=== PATIENT | female | born 1945 | race Caucasian/White ===

== ENCOUNTER → 2017-08-30 | Outpatient (CLI) | payer MEDICARE | END | disposition home or self-care (01) | LOC: CPPFTMAIN 13:03 | PROVIDERS: ATTEND Family Medicine | DX: R05 Cough (principal) | CPT/HCPCS: 94060; 94726; 94729 ==

== ENCOUNTER → 2018-06-16 | Outpatient (CLI) | payer MEDICARE | END | disposition home or self-care (01) | LOC: LABPAT 12:32 | PROVIDERS: ATTEND Orthopaedic Surgery | DX: Z01.812 Encounter for preprocedural laboratory examination (principal) | CPT/HCPCS: 87070 ==

== ENCOUNTER 2018-07-17 05:41 | Inpatient (IN) | payer MEDICARE ==
[2018-07-10 09:26] VITALS: BMI 31.8
--- NOTE | 2018-07-16 21:54 | HP ---
HISTORY AND PHYSICAL SURGERY: 07/17/2018. Jose Francisco Geller a 72-year-old patient seen with symptomatic right knee osteoarthritis. Treatment options discussed. She elected to proceed with right total knee arthroplasty. Consent obtained. Medical clearance by Dr. Davis. PAST MEDICAL HISTORY: Hypertension, hyperlipidemia, asthma. PAST SURGICAL HISTORY: section, carpal tunnel release. DAILY MEDICATIONS: Simvastatin, Singulair, Advil. ALLERGIES: Neosporin. SOCIAL HISTORY: Patient denies current tobacco use. PHYSICAL EXAMINATION: Physical evaluation right knee: Range of motion is -3/4 to 115 degrees. Tenderness along the medial joint line. Crepitance medial and patellofemoral compartments with range of motion. Pain with patellofemoral compression. Ligaments stable. Hip rotation without pain. Distal neurovascular exam intact. RADIOGRAPHS: Right knee radiographs reveal severe osteoarthritic changes. IMPRESSION: 1. Right knee osteoarthritis. 2. Hypertension. 3. Hyperlipidemia. 4. Asthma. PLAN: Right total knee arthroplasty. MMODL / IJN: [id number] /
[~2018-07-17 05:41] MED LIST: ACETAMINOPHEN TAB 500 MG TAB PO ONE; DEXAMETHASONE SOD PHOSPHATE 10 MG/ML 1 ML VIAL IV ONE; LIDOCAINE 1% 20 ML VIAL (10MG/ML) FOR IV START INTRADERMA PRN; MELOXICAM 7.5 MG TAB PO ONE; MIDAZOLAM 2 MG/2 ML VIAL IV PRN; ONDANSETRON 4 MG/2 ML VIAL IVP ONE; TRANEXAMIC ACID 1,000 MG in SODIUM CHLORIDE 0.9% 50 ML IVPB ONE; ceFAZolin IN SWFI 2 GM/20 ML SYRINGE IVP ONE; fentaNYL (PF) 50 MCG/ML 2 ML AMP IV PRN
[2018-07-17] MEDS: LACTATED RINGERS 1,000 ML IV SCH ×5 (06:40→23:59)
[2018-07-17] MEDS ORDERED: PROPOFOL 10 MG/ML 20 ML VIAL IV ONE (07:04)
[2018-07-17] MEDS ORDERED: LACTATED RINGERS 1,000 ML IV ONE ×2 (07:04→08:43)
[2018-07-17] MEDS ORDERED: SODIUM CHLORIDE 0.9% 100 ML BAG ONE (07:04)
[2018-07-17] MEDS ORDERED: MIDAZOLAM 2 MG/2 ML VIAL ONE (07:04)
[2018-07-17] MEDS ORDERED: diphenhydrAMINE 50 MG/ML 1 ML VIAL ONE (07:04)
[2018-07-17] MEDS ORDERED: TRANEXAMIC ACID 1,000 MG/10 ML VIAL ONE (07:04)
[2018-07-17] MEDS: ROPIVACAINE 246.25 MG, EPINEPHrine 0.5 MG, KETOROLAC 30 MG, cloNIDine HCL/PF 80 MCG, WA... MISCELLANE ONE ×10 (07:36→10:45)
[2018-07-17] MEDS ORDERED: ceFAZolin 3,000 MG in SODIUM CHLORIDE 0.9% IRRIGATIO 3,000 ML IRRIGATION ONE (07:37)
--- NOTE | 2018-07-17 08:46 | P.ONQ ---
Anesthesiology Proc Note - PNB - Peripheral Nerve Block Performed Right Adductor Canal Infusion Time Out Performed: Yes (51) Procedure Start Time: 06:51 Procedure Stop Time: 06:58 Indication: Acute Post-Operative Pain, Dx/Pain Location (Right Knee Pain), Requested by physician Sedation Type: Sedate with meaningful contact maintained Preparation: Sterile Prep Position: Supine Catheter: Indwelling Needle Types: On-Q Needle Size: 100mm (4") Needle Gauge: 21 Technique: Ultrasound Injectate: 0.5% Ropivacaine (see comment for volume) (20 ml) Blood Aspirated: No Pain Paresthesia on Injection Noted: No Resistance on Injection: Normal Events: Uneventful and Well Tolerated
[2018-07-17] MEDS ORDERED: NALOXONE 0.4 MG/ML 1 ML VIAL IV PRN (08:59)
[2018-07-17] MEDS ORDERED: HYDROcodone/APAP 5-325MG 1 EACH TAB PO PRN (08:59)
[2018-07-17] MEDS ORDERED: HYDROmorphone 1 MG/ML 1 ML SYRINGE IVP PRN ×3 (08:59)
[2018-07-17] MEDS ORDERED: ONDANSETRON 4 MG/2 ML VIAL IVP PRN (08:59)
--- NOTE | 2018-07-17 08:59 | P.OP ---
Date of Procedure: 07/17/18 Preoperative Diagnosis: Right knee osteoarthritis Postoperative Diagnosis: Right knee osteoarthritis Procedure(s) Performed: Right total knee arthroplasty Implants: 1. Miroslava persona size 8 narrow right cemented cruciate retaining femur 2. Miroslava persona size E right cemented tibial baseplate 3. Miroslava persona 10 mm medial congruent polyethylene tibial insert 4. Miroslava persona 35 mm all polyethylene cemented patella Anesthesia: regional (Adductor canal catheter), local, spinal Surgeon: Adrian Scott Clerk Typist #1: Joselo Ly Estimated Blood Loss (ml): 50 Pathology: other (Bone) Condition: stable Disposition: PACU Indications for Procedure: 72-year-old patient seen with symptomatic right knee osteoarthritis. After having treatment options discussed, she elected to proceed with total knee arthroplasty. Operative Findings: See description of procedure Description of Procedure: Patient was taken to the operative suite after having an adductor canal catheter placed by the department of anesthesia for postoperative pain control. Patient underwent a spinal anesthetic by the department of anesthesia. Patient was given preoperative IV intake antibiotics and TXA. A well-padded tourniquet was placed about the right lower extremity. The lower extremity was then prepped and draped in the normal sterile orthopedic fashion. The extremity was elevated, a tourniquet was insufflated to 300. A standard anterior incision was made sharply through skin. Dissection was taken down through the subcutaneous soft tissues down to the extensor mechanism. A medial arthrotomy was performed, patella was everted and knee was flexed. There was advanced osteoarthritis noted. I introduced my distal intramedullary femoral drill. I then introduced the distal femoral cutting jig. Reji DORANTES secured the cutting jig with 2 pins. I held retractors in position while Reji DORANTES performed the distal femoral resection through the guide area we now removed her distal femoral cutting guide. We now placed our 4-in-1 femoral cutting block and positioned and it was secured with 2 pins by Reji DORANTES while I held the block in position. The distal femoral finishing was now completed. A proximal tibial cutting guide was positioned. I held the guide in the appropriate position with both hands well Reji DORANTES inserted stabilizing pins into the guide. Proximal tibial cut was made. We now placed a trial femoral component into position, along with an appropriate size tibial tray and insert. We now took the knee through range of motion and had full extension good flexion and good overall soft tissue balance noted. The patella was everted and stabilized with 2 towel clips held by Reji DORANTES while I performed a flush with patellar quad tendon utilizing a fresh sawblade. We templated the patella, appropriate drill holes were made. An appropriate trial patella was positioned, knee was taken through full range of motion with the patella tracking very nicely. The trial patella was removed. Drill holes were made through the femoral component. All trial components were removed after marking off the appropriate rotation of the tibia. Retractors were now positioned along the proximal tibia. An appropriate keel punch was made with the appropriate size tibial guide by myself on Reji DORANTES assisted by holding retractors. At this point appropriate size implants were chosen and opened. The joint was irrigated copiously with pulse lavage mechanical irrigation. The posterior capsule was infiltrated with local analgesic. The wound was irrigated with pulse lavage mechanical irrigation. We mixed antibiotic methylmethacrylate. We placed the knee into flexion. We placed multiple retractors assisted by Reji DORANTES to expose the proximal tibia. Once the methyl methacrylate was ready, the tibial component was cemented into place removing any excess methylmethacrylate form by both myself and Reji DORANTES. The femoral component was cemented into place removing the removing any excess methylmethacrylate performed by both myself and Reji DORANTES. We then inserted the appropriate size polyethylene tibial insert. We made sure that it was locked into position. We took the knee into full extension, and then back in a flexion making sure we had removed any excess methylmethacrylate. The patellar component was then cemented down and secured with clamp. Excess methylmethacrylate removed. We kept the knee in full extension, patellar clamp in position until methylmethacrylate had hardened. Once it had hardened the patellar clamp was removed. The knee was taken through full range of motion. The patella tracked nicely. There was good soft tissue balancing. The tourniquet was now released. Additional hemostasis was achieved via electrocautery. A second gram of TXA was given. The wound again was irrigated with pulse lavage mechanical irrigation. The superficial soft tissues were infiltrated local analgesic. The extensor mechanism was repaired with Vicryl. We checked the repair with range of motion and it was stable. The subcutaneous soft tissues were repaired with Vicryl in layers. The skin was approximated with pernio/Dermabond. Sterile dressings were applied followed by loose web roll and David bandage. The patient was transferred to a bed, and taken to recovery in stable and satisfactory condition. Reji DORANTES assisted with this complex procedure.
[2018-07-17] MEDS ORDERED: ENOXAPARIN 30 MG/0.3 ML SYRINGE SQ SCH (09:00)
[2018-07-17] MEDS ORDERED: ROPIVACAINE 1,100 MG, SODIUM CHLORIDE 0.9% 500 ML 330 ML MISCELLANE PRN ×2 (09:33)
--- NOTE | 2018-07-17 09:57 | XR ---
EXAMINATION TYPE: XR knee limited RT DATE OF EXAM: 07/17/2018 COMPARISON: NONE TECHNIQUE: Two views submitted HISTORY: Post op FINDINGS: There is a prosthetic knee in near anatomic alignment. There is soft tissue edema and emphysema. IMPRESSION: 1. Postoperative change. Appears in near-anatomic alignment
[2018-07-17] MEDS: HYDROmorphone 0.5 MG/0.5 ML SYRINGE IVP PRN ×2 (11:07→11:14)
[2018-07-17] MEDS ORDERED: diphenhydrAMINE 50 MG/ML 1 ML VIAL IVP ONE (11:08)
[2018-07-17] MEDS: HYDROcodone/APAP 5-325MG 1 EACH TAB PO PRN (12:14)
[2018-07-17] MEDS: ceFAZolin IN SWFI 2 GM/20 ML SYRINGE IVP SCH ×2 (18:20→23:55)
[2018-07-17] MEDS: ATORVASTATIN 20 MG TAB PO SCH (19:19)
[2018-07-17] MEDS: SENNOSIDES-DOCUSATE SODIUM 1 EACH TAB PO SCH (19:19)
[2018-07-17] MEDS: ENOXAPARIN 30 MG/0.3 ML SYRINGE SQ SCH (19:21)
[2018-07-17] MEDS: SYMBICORT 160-4.5 MCG INHALER INHALATION SCH (21:07)
[2018-07-17] MEDS: traMADol 50 MG TAB PO PRN (22:44)
[2018-07-18] MEDS: HYDROcodone/APAP 5-325MG 1 EACH TAB PO PRN ×4 (03:46→20:56)
[2018-07-18] MEDS ORDERED: NON-FORMULARY DRUG (Omeprazole 40 MG) PO SCH (07:30)
[2018-07-18 07:32] LABS: Basophils % (A) 0 %; Eosinophils % (A) 0 %; HCT 36.5 % (34.0-46.0); HGB 12.2 gm/dL (11.4-16.0); Lymphocytes # (A) 1.5 k/uL (1.0-4.8); Lymphocytes % (A) 11 %; MCH 28.4 pg (25.0-35.0); MCHC 33.5 g/dL (31.0-37.0); Mean Platelet Volume 8.7; Monocytes % (A) 7 %; Neutrophils # (A) 11.4 k/uL (1.3-7.7); Neutrophils % (A) 81 %; Platelet Count 176 k/uL (150-450); RDW 14.1 % (11.5-15.5)
[2018-07-18] MEDS: MULTIVITAMINS, THERA 1 EACH TAB PO SCH (08:56)
[2018-07-18] MEDS: CALCIUM CARB-VIT D 500MG-200UN 1 EACH TAB PO SCH (08:56)
[2018-07-18] MEDS: ENOXAPARIN 30 MG/0.3 ML SYRINGE SQ SCH ×2 (08:56→20:57)
[2018-07-18] MEDS: PANTOPRAZOLE 40 MG TABLET PO SCH (08:57)
[2018-07-18] MEDS: hydrOXYzine PAMOATE 25 MG CAP PO PRN ×2 (08:59→20:56)
[2018-07-18] MEDS ORDERED: LORATADINE 10 MG TAB PO SCH (09:00)
[2018-07-18] MEDS ORDERED: MONTELUKAST 10 MG TAB PO SCH (09:00)
--- NOTE | 2018-07-18 09:00 | CONS ---
CONSULTATION DATE OF CONSULTATION: 07/17/2018. REASON FOR CONSULTATION: Medical management requested by Dr. Scott. CONSULTATION: This is a very pleasant 72-year-old patient who follows with Dr. Marleny Davis. Chronic stable medical conditions include asthma, GERD, hyperlipidemia, varicose veins. Patient has undergone right total knee arthroplasty. Some pain is present. No nausea, vomiting. No chest pain or short of breath. Lying in bed. is present. REVIEW OF SYSTEMS: CONSTITUTIONAL: None. HEENT: None. RESPIRATORY: None. CARDIOVASCULAR: None. GENITOURINARY: None. GASTROINTESTINAL: Heartburn. MUSCULOSKELETAL: Arthritic pain in the joints. DERMATOLOGICAL: Some dermatitis changes in the fingers. HEMATOLOGICAL: None. LYMPHATICS: None. PSYCHIATRY: None. NEUROLOGICAL: None. PAST MEDICAL HISTORY: Of asthma, TIA, GERD, hyperlipidemia, osteoarthritis, postmenopausal, varicose veins, dermatitis in the fingers. PAST SURGICAL HISTORY: , joint replacement, bilateral cataract, perianal lesion removed, left total knee repair and repair of hammertoe on the right big toe, . PSYCH HISTORY: Anxiety. SOCIAL HISTORY: The patient smoked for about 15 years. Stopped in 1978, . FAMILY HISTORY: Family history of lung and liver cancer. HOME MEDICATIONS: Simvastatin 40 mg q.h.s., Prilosec 40 mg before breakfast, fish oil 1000 mg p.o. daily, Singulair 10 mg p.o. daily, fluticasone 1 spray each nostril daily, Zyrtec 10 mg p.o. daily, Calcium 600, vitamin D 1 tablet p.o. daily, Symbicort 160/4.5 two puffs b.i.d., biotin 5 mg p.o. daily, 137 mcg b.i.d. p.r.n., aspirin 81 mg p.o. daily. ALLERGIES: ADHESIVE, BACITRACIN, NEOMYCIN, POLYMYXIN B, DOXYCYCLINE. PHYSICAL EXAMINATION: Temperature 97.6 pulse 96, respiration 16, blood pressure 122/76, pulse ox 97% on room air. GENERAL APPEARANCE: Average built, BMI 31.9. Lying in bed, comfortable. EYES: Pupils equal, conjunctivae normal. HEENT: External appearance of nose and ears normal, oral can moist. NECK: JVD not raised. Mass not palpable. RESPIRATORY: Effort normal, lungs are clear. CARDIOVASCULAR: First and second sounds normal. No edema. ABDOMEN: Soft, nontender. Liver and spleen not palpable. LYMPHATIC: No lymph node palpable in neck or axillae. PSYCHIATRY: Alert and oriented x3. Mood and affect normal. NEUROLOGICAL: Pupils equal. Cranial nerves grossly intact. Power and sensation grossly intact. MUSCULOSKELETAL: Dressing of the right knee. Evidence of OA especially in the hands. INVESTIGATIONS: No current blood work. ASSESSMENT: 1. Right total knee arthroplasty. 2. Primary osteoarthritis. 3. Gastroesophageal reflux disease. 4. Hyperlipidemia. 5. Mild intermittent asthma, stable. 6. Obesity, body mass index 31.7. PLAN: Home medications are resumed. Pain control is in place, patient also getting lactated Ringer's. Patient is on Lovenox 30 mg subcu q.12 for DVT prophylaxis. Care was discussed with the patient's . Questions were answered. Thank you, Dr. Scott. GABBIE / RADHA: [id number] /
[2018-07-18] MEDS: SYMBICORT 160-4.5 MCG INHALER INHALATION SCH ×2 (09:59→20:39)
--- NOTE | 2018-07-18 13:30 | P.PN ---
Progress Note - Text Progress Note Date: 07/18/18 Patient seen lying in bed comfortably. Patient reports some nausea. Patient reports some pain in the right knee. Incision stable. Distal neurovascular exam intact. Negative Kevin Saunders. Impression: Status post right total knee arthroplasty Plan: Pain control. Physical therapy Anticipate discharge tomorrow
[2018-07-18] MEDS ORDERED: HYDROmorphone 2 MG TAB PO PRN ×3 (13:46→13:47)
[2018-07-18] MEDS: traMADol 50 MG TAB PO PRN (16:21)
[2018-07-18] MEDS: LACTATED RINGERS 1,000 ML IV SCH ×2 (19:56→22:22)
[2018-07-18] MEDS: ATORVASTATIN 20 MG TAB PO SCH (20:55)
[2018-07-18] MEDS: SENNOSIDES-DOCUSATE SODIUM 1 EACH TAB PO SCH (20:55)
--- NOTE | 2018-07-18 23:01 | PN ---
PROGRESS NOTE DATE OF SERVICE: 07/18/2018. PRESENTING COMPLAINT: Right knee surgery. INTERVAL HISTORY: Patient is status post right knee surgery, feeling better. No chest pain, shortness of breath. No nausea or vomiting. Did tolerate a diet. Did work with therapy. REVIEW OF SYSTEMS: Done for constitutional, cardiovascular, GI, pulmonary, musculoskeletal; relevant findings as above. CURRENT MEDICATIONS: Reviewed. EXAMINATION: Temperature 97.6, pulse 86, respirations 16, blood pressure 123/75, pulse ox 95 percent. GENERAL APPEARANCE: Sitting up comfortable. EYES: Pupils equal. Conjunctivae normal. HEENT: External appearance of nose and ears normal. Oral cavity normal. NECK: JVD not raised. Mass not palpable. Respiratory effort normal. LUNGS: Clear. CARDIOVASCULAR: 1st and 2nd heart sounds normal. No edema. ABDOMEN: Soft, nontender. Liver and spleen not palpable. PSYCHIATRY: Alert and oriented x3. Mood and affect normal. INVESTIGATIONS: White count 14, hemoglobin 12.2. ASSESSMENT: 1. Right total knee arthroplasty. 2. Primary osteoarthritis. 3. Gastroesophageal reflux disease. 4. Hyperlipidemia. 5. Mild intermittent asthma stable. 6. Obesity; BMI 31.7. 7. Leukocytosis, likely reactive. No clinical evidence of infection. PLAN: Patient is overall doing much better. Had some nausea earlier. Continue light diet. Care was discussed with the patient. MMODL / IJN: [id number] /
[2018-07-19] MEDS: HYDROcodone/APAP 5-325MG 1 EACH TAB PO PRN ×2 (02:49→09:22)
[2018-07-19] MEDS: traMADol 50 MG TAB PO PRN ×2 (06:02→13:38)
[2018-07-19 08:05] VITALS: BP 146/79; PULSE 79; RESP 16; TEMP 98
[2018-07-19] MEDS: SYMBICORT 160-4.5 MCG INHALER INHALATION SCH (08:29)
[2018-07-19] MEDS: PANTOPRAZOLE 40 MG TABLET PO SCH (08:38)
[2018-07-19] MEDS: ENOXAPARIN 30 MG/0.3 ML SYRINGE SQ SCH (08:40)
[2018-07-19] MEDS ORDERED: MONTELUKAST 10 MG TAB PO SCH (09:00)
[2018-07-19] MEDS: hydrOXYzine PAMOATE 25 MG CAP PO PRN (09:21)
--- NOTE | 2018-07-19 10:24 | P.PN ---
Subjective Progress Note Date: 07/19/18 Principal diagnosis: Status post right total knee arthroplasty Patient seen today resting in her hospital bed, she appears comfortable. She's ambulated well at this time. She did develop some dizziness yesterday at the end of her walk. She denies any chest pain or shortness of breath time. Objective - Vital Signs Vital signs: Vital Signs Temp 98 F 07/19/18 08:05 Pulse 79 07/19/18 08:05 Resp 16 07/19/18 08:05 BP 146/79 07/19/18 08:05 Pulse Ox 95 07/19/18 08:05 Intake & Output 07/18/18 07/19/18 07/19/18 18:59 06:59 18:59 Intake Total 250 1800 540 Balance 250 1800 540 Weight 81.647 kg Intake: Oral 250 1800 540 Other: Voiding Method Toilet # Voids 1 2 # Bowel Movements 1 # Emeses 0 - Exam Right lower extremity: Incision is clean, dry, and intact. The prineo tape is in good condition. There is minimal soft tissue swelling and ecchymosis surrounding the medial and lateral aspects of the incision. Calf is soft, no tenderness with palpation. Plantar flexion, dorsiflexion, EHL, FHL are intact. Sensory exam to light touch throughout the extremity is intact, dorsal pedis pulses 2+. - Labs CBC & Chem 7: 07/18/18 06:06 Assessment and Plan Plan: Assessment: Postop day #2 status post right total knee arthroplasty Plan: Pain control, continue current medication GI and DVT prophylaxis, continue Lovenox during hospital stay Wound care instructions were discussed Encourage incentive spirometer Ice and elevate, utilize CPM Medical recommendations Discharge planning: Possible discharged home today, we'll monitor Time with Patient: Less than 30
[2018-07-19] MEDS: LACTATED RINGERS 1,000 ML IV SCH (11:34)
[2018-07-19] MEDS: CALCIUM CARB-VIT D 500MG-200UN 1 EACH TAB PO SCH (11:36)
[2018-07-19] MEDS: MULTIVITAMINS, THERA 1 EACH TAB PO SCH (11:36)
--- NOTE | 2018-07-19 12:08 | P.PN ---
Progress Note - Text Anesthesia POD 2. Patient is status post. Right TKR under spinal anesthesia anesthesia with a right adductor canal catheter placed for postoperative pain relief. With ropivacaine 0.2% running at 12 cc's per hour, the patient's VAS is (3, 6). Catheter site is clean dry and intact.
--- NOTE | 2018-07-19 12:42 | P.DS ---
Providers Date of admission: 07/17/18 05:41 Expected date of discharge: 07/19/18 Attending physician: Adrian Scott Consults: 07/17/18 08:59 Consult Physician Routine Consulting Provider: Marleny Davis Consult Reason/Comments: Medical management Do you want consulting provider notified?: Yes Primary care physician: Marleny Davis Hospital Course: Date of admission: 07/17/2018 Date of discharge: 07/19/2018 Admission diagnosis: Status post right total knee arthroplasty Discharge diagnosis: Same Attending physician: Dr. Scott Surgical procedures: Right total knee arthroplasty Brief history: Patient is a 72-year-old female with a history of progressive primary right knee osteoarthritis. At this point patient has failed conservative treatment measures and has opted to proceed with a elective right total knee arthroplasty. Hospital course: Details of patient's surgery can be found in operative report. Patient tolerated the procedure well and was subsequently transported to orthopedic floor. Patient's orthopeidc and medical care was provided daily. Patient had daily laboratory tests performed for evaluation of overall blood counts. Patient had daily physical therapy to include strengthening range of motion as well as education with walker ambulation. Patient had daily CPM usage as part of their physical therapy program. Patient was treated with Lovenox for their postoperative DVT prophylaxis during their inpatient stay. Patient was noted to have a relatively uneventful postoperative course. Patient reported satisfactory pain control with oral pain medications by postoperative day 0. Patient showed satisfactory progress with physical therapy. Patient moved steadily through the program and had no difficulty meeting the goals by postoperative day 2. Given patient's otherwise satisfactory course and having met physical therapy goals, plan is to discharge patient home on postoperative day 2. Discharge condition/disposition: Patient will be discharged home in stable condition. Discharge medications: Instructions are given on resumption of patient's normal daily medications per primary care recommendation, in addition patient will be prescribed [place] 5 mg/325 mg, tramadol 50 mg, aspirin 81 mg. Discharge instructions: 1. Wound care and infection precautions, keep incision dry and covered while showering, no lotions, creams, moisturizers. No soaking, tubs, pools, hottubs. Do not scrub over the incision. 2. Weight-bear as tolerated with walker / cane until follow-up. 3. Ice and elevate when necessary. Do not exceed 20 minutes per hour with ice pack. 4. Utilize compression sleeve until seen at first follow up appointment. 5. Visiting nursing care. 6. Home physical therapy including home CPM. 7. Pain meds and anticoagulants per prescription. 8. Pain medication has potential to cause constipation. Increase oral fluid and fiber intake. Contact primary care provider if you have not had a bowel movement within 48 hours after discharge 9. No anti-inflammatory medication until discussed at first post operative visit, this including Motrin, Aleve, Mobic, Diclofenac. 10. Follow up in office at 2 weeks postop with Reji Ly PA-C 11. Follow up with your primary care doctor 7-10 days after discharge. 12. Contact [facility] with any questions, . Procedures: Right total knee arthroplasty Patient Condition at Discharge: Good Plan - Discharge Summary Discharge Rx Participant: Yes New Discharge Prescriptions: New Hydrocodone/Acetaminophen [[place] 5-325] 1 - 2 each PO Q6HR PRN #40 tab PRN Reason: Pain traMADol HCl [Ultram] 50 mg PO Q6H PRN #28 tab PRN Reason: Pain No Action Budesonide/Formoterol Fumarate [Symbicort 160-4.5 Mcg Inhaler] 2 puff INHALATION RT-BID Cetirizine HCl [Zyrtec] 10 mg PO DAILY Simvastatin 40 mg PO HS Fluticasone Propionate 1 spray EA NOSTRIL DAILY Montelukast [Singulair] 10 mg PO DAILY Azelastine HCl [Astepro] 137 mcg NASAL BID PRN PRN Reason: allergies Novice-3 Fatty Acids/Fish Oil [Fish Oil 1,000 mg Softgel] 1 each PO DAILY Calcium Carbonate/Vitamin D3 [Calcium 600 + Vit D Tablet] 1 each PO DAILY Biotin 5 mg PO DAILY Omeprazole [PriLOSEC] 40 mg PO -[facility] Discharge Medication List Budesonide/Formoterol Fumarate [Symbicort 160-4.5 Mcg Inhaler] 2 puff INHALATION RT-BID 07/23/14 [History] Cetirizine HCl [Zyrtec] 10 mg PO DAILY 07/23/14 [History] Fluticasone Propionate 1 spray EA NOSTRIL DAILY 07/23/14 [History] Simvastatin 40 mg PO HS 07/23/14 [History] Montelukast [Singulair] 10 mg PO DAILY 07/29/14 [History] Azelastine HCl [Astepro] 137 mcg NASAL BID PRN 02/26/16 [History] Biotin 5 mg PO DAILY 02/26/16 [History] Calcium Carbonate/Vitamin D3 [Calcium 600 + Vit D Tablet] 1 each PO DAILY [History] Novice-3 Fatty Acids/Fish Oil [Fish Oil 1,000 mg Softgel] 1 each PO DAILY [History] Omeprazole [PriLOSEC] 40 mg PO AC-BRKFST 07/17/18 [History] Hydrocodone/Acetaminophen [[place] 5-325] 1 - 2 each PO Q6HR PRN #40 tab 07/19/18 [Rx] traMADol HCl [Ultram] 50 mg PO Q6H PRN #28 tab 07/19/18 [Rx] Follow up Appointment(s)/Referral(s): Marleny Davis DO [Primary Care Provider] - 07/27/18 10:00 am Joselo Ly PAC [PHYSICIAN MANAGER WHOLESALE] - 08/04/18 1:30 pm [facility] Visiting Nurse, [NON-STAFF] - Patient Instructions/Handouts: Knee Replacement (DC) Activity/Diet/Wound Care/Special Instructions: Orthopedic Discharge Instructions: 1. Wound care and infection precautions, keep incision dry and covered while showering, no lotions, creams, moisturizers. No soaking, pools, hot tubs. Do not scrub over incision. 2. Weight-bear as tolerated with walker / cane until follow-up. 3. Ice and elevate when necessary. Do not exceed 20 minutes per hour with ice pack. 4. Utilize compression sleeve until seen at first follow up appointment. 5. Pain meds and anticoagulants per prescription. 6. Pain medication has potential to cause constipation. Increase oral fluid and fiber intake. Contact primary care provider if you have not had a bowel movement within 48 hours after discharge. 7. No anti-inflammatory medication until discussed at first post operative visit, this including Motrin, Aleve, Mobic, Diclofenac. 8. Follow up in office at 2 weeks postop with Reji Ly PA-C 9. Follow up with your primary care doctor 7-10 days after discharge. 10. Contact [facility] with any questions, [phone]. 11. [facility] [phone] - Please call once home to arrange delivery of CPM Discharge Disposition: HOME WITH HOME HEALTH SERVICES
[2018-07-19] MEDS ORDERED: LORATADINE 10 MG TAB PO SCH (21:00)
--- NOTE | 2018-07-20 06:39 | PN ---
PROGRESS NOTE DATE OF SERVICE: 07/19/2018 PRESENTING COMPLAINT: Right knee surgery. INTERVAL HISTORY: Patient is status post right knee surgery feeling better. Continues to improve. No new symptoms. Did follow up with therapy. Did tolerate a diet. No chest pain or shortness of breath. REVIEW OF SYSTEMS: Done for constitutional, cardiovascular, GI, pulmonary, musculoskeletal; relevant findings as above. CURRENT MEDICATIONS: Current medications are reviewed. PHYSICAL EXAMINATION: On examination, temperature 98, pulse 79, respiration 16, blood pressure 146/79, pulse ox 95% on room air. GENERAL APPEARANCE: Sitting up, comfortable. EYES: Pupil equal. Conjunctivae normal. HENT: External appearance of nose and ears normal. Oral cavity normal. NECK: JVD not raised. Mass not palpable. RESPIRATORY: Effort normal. Lungs are clear. CARDIOVASCULAR: First and second sounds normal. No edema. ABDOMEN: Soft, nontender. Liver and spleen not palpable. PSYCHIATRY: Alert and oriented x3. Mood and affect normal. INVESTIGATIONS: No lab work from today. ASSESSMENT: 1. Right total knee arthroplasty. 2. Primary osteoarthritis. 3. Gastroesophageal reflux disease. 4. Hyperlipidemia. 5. Mild intermittent asthma, stable. 6. Obesity; body mass index 31.7. 7. Leukocytosis likely reactive. No clinical evidence of infection. PLAN: Patient is doing well. If discharged, should follow up with her family doctor. MMODL / IJN: [id number] /
== END 2018-07-19 13:57 | disposition home health service (06) | DRG 470 ==
LOC: 2ORMAIN 05:41 → 4SSUR 11:39
PROVIDERS: ADMIT Orthopaedic Surgery; ATTEND Orthopaedic Surgery
PROC: 0SRC0J9 Replacement of Right Knee Joint with Synthetic Substitute, Cemented, Open Approach (ICD-10-PCS; principal; 2018-07-17 07:00)
DX: M17.11 Unilateral primary osteoarthritis, right knee (principal); D72.829 Elevated white blood cell count, unspecified; E66.9 Obesity, unspecified; E78.5 Hyperlipidemia, unspecified; I10 Essential (primary) hypertension; I83.90 Asymptomatic varicose veins of unspecified lower extremity; J45.20 Mild intermittent asthma, uncomplicated; K21.9 Gastro-esophageal reflux disease without esophagitis; Z68.31 Body mass index [BMI] 31.0-31.9, adult; Z79.82 Long term (current) use of aspirin; Z80.0 Family history of malignant neoplasm of digestive organs; Z86.73 Personal history of transient ischemic attack (TIA), and cerebral infarction without residual deficits; Z87.891 Personal history of nicotine dependence; L30.9 Dermatitis, unspecified; Z96.652 Presence of left artificial knee joint; Z98.42 Cataract extraction status, left eye; Z98.41 Cataract extraction status, right eye; F41.9 Anxiety disorder, unspecified; Z79.51 Long term (current) use of inhaled steroids; Z79.899 Other long term (current) drug therapy; Z80.1 Family history of malignant neoplasm of trachea, bronchus and lung; Z88.1 Allergy status to other antibiotic agents
CPT/HCPCS: 85025; 88300; 94640

== ENCOUNTER → 2018-10-04 | Outpatient (CLI) | payer MEDICARE ==
[2018-10-04 11:09] VITALS: BP 122/83; PULSE 80; RESP 18; TEMP 97.5; BMI 30.9
--- NOTE | 2018-10-04 11:43 | P.HPOB ---
History of Present Illness H&P Date: 10/04/18 Chief Complaint: The patient is here for her routine gynecologic exam and mammogram. This is a 73-year-old with an LMP of 1997. The patient is without gynecologic complaints and denies any postmenopausal bleeding. Review of Systems She has lost about 9 pounds over the last year. She denies respiratory, cardiac and G.I. problems. She denies maltreatment or problems with falling. : she denies any significant problems with urinary leakage. Past Medical History Past Medical History: Asthma, CVA/TIA (TIA in 2003), GERD/Reflux, Hyperlipidemia , Osteoarthritis (OA), Skin Disorder Additional Past Medical History / Comment(s): POST MENOPAUSAL > 2 YRS, PALPITATIONS,VARICOSE VEINS, UTI'S,INTERMITTENT DERMATITIS KATHERINE FINGERS. Seasonal allergies. 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 History of Any Multi-Drug Resistant Organisms: None Reported Past Surgical History: Section (x1), Joint Replacement (Left knee replacement), Orthopedic Surgery (Carpal tunnel surgery) Additional Past Surgical History / Comment(s): LT CATARACT, PERIANAL LESION REMOVED, TOTAL LEFT KNEE, repair of hammertoe the right foot. Colonoscopy 2010( 2nd) Past Anesthesia/Blood Transfusion Reactions: No Reported Reaction Additional Past Anesthesia/Blood Transfusion Reaction / Comment(s): STATED "NOT SURE IF EVER HAS HAD GENERAL ANESTHESIA" Past Psychological History: Anxiety Smoking Status: Former smoker (Quit 1978) Past Alcohol Use History: Occasional (2 per week) Additional Past Alcohol Use History / Comment(s): STARTED SMOKING IN 1963 STOPPED IN 1978 Past Drug Use History: None Reported Additional History: She has been since 1970 and is retired. She typically goes to [place] for 2 months every winter. - Past Family History Father Family Medical History: Cancer Additional Family Medical History / Comment(s): LUNG AND LIVER CA. Paternal aunt had breast cancer Mother Family Medical History: Dementia Brother(s) Family Medical History: No Reported History Son(s) Family Medical History: No Reported History Medications and Allergies Home Medications Medication Instructions Recorded Confirmed Type Budesonide/Formoterol Fumarate 2 puff INHALATION RT-BID 07/23/14 10/04/18 History [Symbicort 160-4.5 Mcg Inhaler] Cetirizine HCl [Zyrtec] 10 mg PO DAILY 07/23/14 10/04/18 History Fluticasone Propionate 1 spray EA NOSTRIL DAILY 07/23/14 10/04/18 History Simvastatin 40 mg PO HS 07/23/14 10/04/18 History Montelukast [Singulair] 10 mg PO DAILY 07/29/14 10/04/18 History Biotin 5 mg PO DAILY 02/26/16 10/04/18 History Calcium Carbonate/Vitamin D3 1 each PO DAILY 02/26/16 10/04/18 History [Calcium 600 + Vit D Tablet] [place]-3 Fatty Acids/Fish Oil [Fish 1 each PO DAILY 02/26/16 10/04/18 History Oil 1,000 mg Softgel] Omeprazole [PriLOSEC] 40 mg PO AC-BRKFST 07/17/18 10/04/18 History Allergies Allergy/AdvReac Type Severity Reaction Status Date / Time adhesive Allergy SKIN Verified 10/04/18 11:03 REDNESS bacitracin Allergy SKIN Verified 10/04/18 11:03 [From Neosporin REDNESS ([id number])] bacitracin zinc Allergy SKIN Verified 10/04/18 11:03 [From Neosporin REDNESS ([id number])] neomycin sulfate Allergy SKIN Verified 10/04/18 11:03 [From Neosporin REDNESS ([id number])] polymyxin B Allergy SKIN Verified 10/04/18 11:03 [From Neosporin REDNESS ([id number])] doxycycline AdvReac Nausea Verified 10/04/18 11:03 Exam Vital Signs Temp Pulse Resp BP Pulse Ox 10/04/18 10:57 97.5 F L 80 18 122/83 97 Intake and Output 10/03/18 10/04/18 10/04/18 22:59 06:59 14:59 Other: Weight 79.379 kg Height 5'3", weight 175 pounds, BMI 31.0. This is a well-developed well-nourished white female who is alert and oriented times 3 in no acute distress. HEENT: Within normal limits. NECK: Supple without mass or thyromegaly. CHEST AND LUNGS: Clear to auscultation. HEART: Regular rate and rhythm. BREASTS: Are without mass or discharge. AXILLARY EXAM: Negative for adenopathy. BACK: Negative for CVA tenderness. ABDOMEN: Soft, nontender, without palpable masses. PELVIC EXAM: Normal external genitalia with moderate atrophy. Cervix and vagina appear normal with mild to moderate atrophy. There is no unusual discharge. There is no evidence of prolapse. The uterus is midposition, nongravid size and nontender. There are no palpable adnexal masses or tenderness. RECTAL EXAM: recto vaginal exam is negative for mass or tenderness and is negative for occult blood. EXTREMITIES: Nontender. IMPRESSION: 1. 73-year-old menopausal female with normal gynecological exam. 2. History of osteopenia. PLAN: 1. Pap smear was deferred since she had a normal one less than 2 years ago. We have also discussed the possibility of discontinuing Pap smears since she has no history of cervical neoplasia and has been adequately screened and is over the age of 65. She feels strongly that she would like to continue yearly pelvic exams and regular Pap smears. Pap smears will be done every 2 to 3 years per the patient's request. 2. Self breast awareness was discussed with the patient. 3. Screening mammogram will be done today. 4. Osteoporosis prevention was discussed. I have stressed the importance of adequate calcium, vitamin D and regular exercise. Recommended amounts of calcium and vitamin D were also discussed. I have recommended bone density screening. The order slip was given to the patient for this. She states she will probably do this when she returns from [place]. 5. She did receive a flu shot this fall. 6. She will return in one year.
--- NOTE | 2018-10-08 14:29 | MM ---
Reason for exam: screening (asymptomatic). Last mammogram was performed 1 year and 1 month ago. History: Patient is postmenopausal. Family history of breast cancer in paternal aunt at age 54. Took hormonal contraceptives for 6 years beginning at age 19. Took estrogen for 2 years 6 months beginning at age 49. MG 3D Screening Mammo W/Cad Bilateral CC and MLO view(s) were taken. Prior study comparison: August 30, 2017, bilateral MG 3d screening mammo w/cad. August 25, 2016, bilateral MG 3d screening mammo w/cad. The breast tissue is heterogeneously dense. This may lower the sensitivity of mammography. No significant changes when compared with prior studies. ASSESSMENT: Negative, BI-RAD 1 RECOMMENDATION: Routine screening mammogram of both breasts in 1 year.
== END ==
LOC: WWCWWP 10:34
PROVIDERS: ATTEND Obstetrics & Gynecology
DX: Z12.31 Encounter for screening mammogram for malignant neoplasm of breast (principal)
CPT/HCPCS: 77063; 77067

== ENCOUNTER → 2019-07-11 | Outpatient (CLI) | payer MEDICARE ==
--- NOTE | 2019-07-11 11:53 | CT ---
EXAMINATION TYPE: CT sinus wo con DATE OF EXAM: 07/11/2019 COMPARISON: NONE HISTORY: chronic cough and sinus issues with facial pain for years per patient. Allergic per order. CT DLP: 609.4 mGycm. Automated Exposure Control for Dose Reduction was Utilized. TECHNIQUE: CT scan of the sinuses is performed without contrast, axial images are obtained, coronal r eformatted images are also reviewed. FINDINGS: Mild mucosal thickening involving anterior ethmoid sinuses bilaterally. No suspicious opaci fication or air-fluid levels otherwise seen in the visualized sinuses. The ostiomeatal complex is pa tent bilaterally on the coronal images seen best coronal image 19. Visualized portion of mastoid air cells show no abnormal opacification. The globes are intact bilate rally. Visualized portion of brain parenchyma shows mild diffuse cerebral atrophy and chronic small vessel ischemic changes. IMPRESSION: Mild anterior chronic ethmoid sinus disease. No acute sinusitis.
== END | disposition home or self-care (01) ==
LOC: RADCTMAIN 11:12
PROVIDERS: ATTEND Internal Medicine Critical Care Medicine
DX: J32.2 Chronic ethmoidal sinusitis (principal); J30.2 Other seasonal allergic rhinitis
CPT/HCPCS: 70486

== ENCOUNTER → 2019-07-25 | Outpatient (CLI) | payer MEDICARE ==
--- NOTE | 2019-07-25 10:27 | BD ---
EXAMINATION TYPE: Axial Bone Density DATE OF EXAM: 07/25/2019 COMPARISON: 2016 CLINICAL HISTORY: Z 78.0 Height: 62.5 Weight: 180 FRAX RISK QUESTIONS: Alcohol (3 or more units per day): no Family History (Parent hip fracture): yes, mother Glucocorticoids (More than 3mos): no (Ex: prednisone, prednisolone, methylprednisolone, dexamethasone, and hydrocortisone). History of Fracture in Adulthood: no Secondary Osteoporosis: 1. Type 1 Diabetes: no 2. Hyperthyroidism: no 3. Menopause before 45: no 4. Malnutrition: no 5. Chronic liver disease: no Rheumatoid Arthritis: no Current Tobacco Use: no RISK FACTORS HISTORY OF: Spine Fracture: yes, T-1 When: age 31 Family History of Osteoporosis: unsure Active: yes Diet low in dairy products/other sources of calcium: no Postmenopausal woman: yes Take estrogen and/or progesterone medications: not now How long: age [age] Lost more than 2 inches in height since high school: no Frequent falls: no Poor Health: no Hyperparathyroidism: no Adrenal Insufficiency: no MEDICATIONS: Prednisone or other steroids: no Thyroid Medications: no Osteoporosis Medications: no Additional Medications: calcium & vitamin D, Simvastatin Additional History: bilateral knee replacements, fx forearm age 5 (in 2016 patient reported history of Lumbar spine fx....since then patient has learned that fracture was actually in Thoracic spine) EXAM MEASUREMENTS: Bone mineral densitometry was performed using the [employer] System. Bone mineral density as measured about the Lumbar spine is: ----- L1-L4(G/cm2): 1.205 T Score Values are as follows: ----- L2: -0.9 ----- L3: 0.0 ----- L4: 2.7 ----- L1-L4: 0.2 Bone mineral density not previously done on lumbar spine Bone mineral density about the R hip (g/cm2): 0.725 Bone mineral density about the L hip (g/cm2): 0.692 T Score values are as follows: -----R Neck: -2.3 -----L Neck: -2.5 -----R Total: -2.2 -----L Total: -1.8 Bone mineral density has: Decreased -1.6% since study of: 09/24/2016 IMPRESSION: Osteopenia (T Score between -2.5 and -1). Values approach osteoporosis in regards to the left femoral neck. There is slightly increased risk of fracture and the patient may be considered for treatment. Re-Screen 2-5 years. NOTE: T-SCORE=SD OF THE YOUNG ADULT MEAN.
--- NOTE | 2019-07-25 12:35 | P.PN ---
Progress Note - Text Progress Note Date: 07/25/19 OUTPATIENT FOLLOW-UP NOTE TEST(S)/RESULTS: Bone density test done today shows stable osteopenia METHOD OF NOTIFICATION: The patient was notified by phone. PATIENT COMMENTS: The patient is declining medications for weaker bones at this time. DIAGNOSIS: Stable osteopenia bordering osteoporosis. DISCUSSION: We have discussed the option of medications for weaker bones and she is declining medication at this time. I have stressed the importance of adequate calcium, vitamin D, and regular exercise. Tips about avoiding falling and using stairs were discussed with the patient. PLAN: He bone density test in 2-3 years. She will return in approximately one year for her well woman exam.
== END | disposition home or self-care (01) ==
LOC: RADBDWWP 09:07
PROVIDERS: ATTEND Obstetrics & Gynecology
DX: M81.0 Age-related osteoporosis without current pathological fracture (principal); M85.80 Other specified disorders of bone density and structure, unspecified site
CPT/HCPCS: 77080

== ENCOUNTER → 2019-08-07 | Outpatient (CLI) | payer MEDICARE ==
[2019-08-07 16:08] LABS: African American GFR (CKD) >90 (>60 ml/min/1.73 sqM); Blood Urea Nitrogen 15 mg/dL (7-17)
--- NOTE | 2019-08-08 12:40 | CT ---
EXAMINATION TYPE: CT chest w con DATE OF EXAM: 08/07/2019 COMPARISON: NONE HISTORY: Cough and SOB CT DLP: 353.4 mGycm. Automated Exposure Control for Dose Reduction was Utilized. TECHNIQUE: CT scan of the thorax is performed following with IV Contrast, patient injected with 100 mL of Isovue 300. FINDINGS: LUNGS: 4 x 5 mm subsolid nodule along the subpleural medial left lower lobe on series 4 image 38. The lungs are grossly clear, there is no concerning parenchymal mass or nodule identified. There is no pleural effusion or pneumothorax seen. No interlobular septal thickening. The tracheobronchial tree is patent. No peribronchial cuffing is seen. No emphysematous change. MEDIASTINUM: There are no greater than 1 cm hilar or mediastinal lymph nodes. No pericardial effusi on is seen. Moderate coronary calcifications of the left anterior descending coronary artery OTHER: Partial visualization of the liver demonstrates diffuse hypoattenuation (limiting evaluation f or hepatic masses). This most commonly relates to hepatic steatosis. Few colonic diverticula are also seen without pericolonic fat stranding. There is fatty replacement of the pancreas. Compression defo rmities are seen of T12 and L2 that are age indeterminant. Mild multilevel degenerative changes of th e spine. IMPRESSION: 1. No CT finding to correspond to the patient's cough. No evidence of interstitial lung disease, no f ocal consolidation, no peribronchial cuffing, and no emphysema. 2. Incidentally noted subsolid 5 mm left basilar pulmonary nodule. CT thorax is recommended in 12 mon ths to establish stability. 3. Partially visualized hepatic steatosis, colonic diverticulosis, an age-indeterminate compression d eformities of T12 and L2. Correlate with point tenderness.
== END | disposition home or self-care (01) ==
LOC: RADCTMAIN 15:33
PROVIDERS: ATTEND Internal Medicine Critical Care Medicine
DX: R05 Cough (principal); Z88.1 Allergy status to other antibiotic agents
CPT/HCPCS: 82565; 84520; 71260; 36415; Q9967

== ENCOUNTER → 2020-03-11 | Outpatient (CLI) | payer MEDICARE ==
[2020-03-11 11:31] VITALS: BP 155/85; PULSE 80; RESP 18; TEMP 98.2
--- NOTE | 2020-03-11 12:08 | P.HPOB ---
History of Present Illness H&P Date: 03/11/20 Chief Complaint: The patient is here for her routine gynecologic exam and ma mmogram. This is a 74-year-old with an LMP of 1997. The patient is without gynecologic complaints and denies any postmenopausal bleeding. Review of Systems She has gained about 9 pounds over the last 1-1/2 years.. She denies respiratory, cardiac and G.I. problems. She denies maltreatment or problems with falling. : she denies any significant problems with urinary leakage, but can lose a small amount of urine if she coughs very hard. Past Medical History Past Medical History: Asthma, CVA/TIA, GERD/Reflux, Hyperlipidemia, Osteoarthritis (OA), Skin Disorder Additional Past Medical History / Comment(s): PALPITATIONS,VARICOSE VEINS, UTI'S,INTERMITTENT DERMATITIS KATHERINE FINGERS. Seasonal allergies. 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 History of Any Multi-Drug Resistant Organisms: None Reported Past Surgical History: Section, Joint Replacement, Orthopedic Surgery Additional Past Surgical History / Comment(s): LT CATARACT, PERIANAL LESION REMOVED, TOTAL LEFT KNEE, repair of hammertoe the right foot. Oral surgery. Colonoscopy 2010(2nd). Past Anesthesia/Blood Transfusion Reactions: No Reported Reaction Additional Past Anesthesia/Blood Transfusion Reaction / Comment(s): STATED "NOT SURE IF EVER HAS HAD GENERAL ANESTHESIA" Past Psychological History: Anxiety Smoking Status: Former smoker Past Alcohol Use History: Occasional (2-3 per week) Additional Past Alcohol Use History / Comment(s): STARTED SMOKING IN 1963 STOPPED IN 1978 Past Drug Use History: None Reported Additional History: She has been since 1970 and is retired. She typically goes to [place] for 2 months every winter. - Past Family History Father Family Medical History: Cancer Additional Family Medical History / Comment(s): LUNG AND LIVER CA. Paternal aunt had breast cancer Mother Family Medical History: Dementia Brother(s) Family Medical History: No Reported History Son(s) Family Medical History: No Reported History Medications and Allergies Home Medications Medication Instructions Recorded Confirmed Type Cetirizine HCl [Zyrtec] 10 mg PO DAILY 07/23/14 03/11/20 History Fluticasone Propionate 1 spray EA NOSTRIL DAILY 07/23/14 03/11/20 History Simvastatin 40 mg PO HS 07/23/14 03/11/20 History Montelukast [Singulair] 10 mg PO DAILY 07/29/14 03/11/20 History Biotin 5 mg PO DAILY 02/26/16 03/11/20 History Calcium Carbonate/Vitamin D3 1 each PO DAILY 02/26/16 03/11/20 History [Calcium 600 + Vit D Tablet] [place]-3 Fatty Acids/Fish Oil [Fish 1 each PO DAILY 02/26/16 03/11/20 History Oil 1,000 mg Softgel] Omeprazole [PriLOSEC] 40 mg PO AC-BRKFST 07/17/18 03/11/20 History Aspirin 81 mg PO DAILY 03/11/20 03/11/20 History Inulin/Chromium Picolinate [Fiber 1 each PO DAILY 03/11/20 03/11/20 History Gummies Chew] Allergies Allergy/AdvReac Type Severity Reaction Status Date / Time adhesive Allergy SKIN Verified 03/11/20 11:22 REDNESS bacitracin Allergy SKIN Verified 03/11/20 11:22 [From Neosporin REDNESS ([id number])] bacitracin zinc Allergy SKIN Verified 03/11/20 11:22 [From Neosporin REDNESS ([id number])] neomycin sulfate Allergy SKIN Verified 03/11/20 11:22 [From Neosporin REDNESS ([id number])] polymyxin B Allergy SKIN Verified 03/11/20 11:22 [From Neosporin REDNESS ([id number])] doxycycline AdvReac Nausea Verified 03/11/20 11:22 Exam Vital Signs Temp Pulse Resp BP Pulse Ox 03/11/20 11:26 98.2 F 80 18 155/85 97 Intake and Output 03/10/20 03/11/20 03/11/20 22:59 06:59 14:59 Other: Weight 83.461 kg Height 5 feet 3 inches, weight 184 pounds, BMI 32.6. This is a well-developed well-nourished white female who is alert and oriented times 3 in no acute distress. HEENT: Within normal limits. NECK: Supple without mass or thyromegaly. CHEST AND LUNGS: Clear to auscultation. HEART: Regular rate and rhythm. BREASTS: Are without mass or discharge. AXILLARY EXAM: Negative for adenopathy. BACK: Negative for CVA tenderness. ABDOMEN: Soft, nontender, without palpable masses. PELVIC EXAM: Normal external genitalia with mild to moderate atrophy. Cervix and vagina appear normal with mild to moderate atrophy. The cervix is somewhat stenotic secondary to atrophy. There is no unusual discharge. There is no evidence of prolapse. The uterus is midposition, nongravid size and nontender. There are no palpable adnexal masses or tenderness. RECTAL EXAM: Rectovaginal exam is negative for mass or tenderness and is negative for occult blood. EXTREMITIES: Nontender. IMPRESSION: 1. 74-year-old menopausal female with normal gynecologic exam. 2. History of osteopenia. PLAN: 1. Pap smear was performed. The patient understands that she is considered low risk for cervical problems since she has had adequate screening and has not had any Pap smear problems in the past. I have recommended discontinuing Pap s rusty. She feels strongly that she would like to continue yearly pelvic exams and regular Pap smears. 2. Self breast awareness was discussed with the patient. 3. Screening mammogram will be done today. 4. Osteoporosis prevention was discussed. I have stressed the importance of adequate calcium, vitamin D and regular exercise. Recommended amounts of calcium and vitamin D were also discussed. We will plan on repeating bone density testing in 1-2 years. Her last bone density test was done on 07/25/2019. 5. She did receive her flu shot last fall. 6. The patient was advised to return in 1-2 years for her well woman examination.
--- NOTE | 2020-03-13 11:04 | MM ---
Reason for exam: screening (asymptomatic). Last mammogram was performed 1 year and 5 months ago. History: Patient is postmenopausal. Family history of breast cancer in paternal aunt at age 54. Took hormonal contraceptives for 6 years beginning at age 19. Took estrogen for 2 years 6 months beginning at age 49. Physical Findings: A clinical breast exam by your physician is recommended on an annual basis and results should be correlated with mammographic findings. MG 3D Screening Mammo W/Cad Bilateral CC and MLO view(s) were taken. Prior study comparison: October 04, 2018, bilateral MG 3d screening mammo w/cad. August 30, 2017, bilateral MG 3d screening mammo w/cad. The breast tissue is heterogeneously dense. This may lower the sensitivity of mammography. There are benign appearing round calcifications bilaterally. There is no discrete abnormality. ASSESSMENT: Benign, BI-RAD 2 RECOMMENDATION: Routine screening mammogram of both breasts in 1 year.
--- NOTE | 2020-03-19 12:38 | P.PN ---
Progress Note - Text Progress Note Date: 03/19/20 OUTPATIENT FOLLOW-UP NOTE TEST(S)/RESULTS: test results from 03/11/2020 include negative Pap smear and benign mammogram. METHOD OF NOTIFICATION: a message with these results was left on the patient's voice mail. PATIENT COMMENTS: DIAGNOSIS: negative Pap smear and benign mammogram. DISCUSSION: PLAN: The patient was advised to return in 1-2 years for her well woman examination.
== END | disposition home or self-care (01) ==
LOC: WWCWWP 11:06
PROVIDERS: ATTEND Obstetrics & Gynecology
DX: Z12.31 Encounter for screening mammogram for malignant neoplasm of breast (principal)
CPT/HCPCS: 77063; 77067

== ENCOUNTER → 2020-08-11 | Outpatient (CLI) | payer MEDICARE ==
--- NOTE | 2020-08-11 11:34 | CT ---
EXAMINATION TYPE: CT chest wo con DATE OF EXAM: 08/11/2020 COMPARISON: 08/07/2019 HISTORY: lung nodule CT DLP: 300.[address] of the chest was performed with lung and mediastinal window settings submitted. The la ck of contrast limits evaluation of the vascular, mediastinal and parenchymal structures including th e upper abdomen. LUNGS: The lungs are clear and free of infiltrate. No atelectasis. Stable 4 mm subpleural nodule left lower lobe image 39. Prior measurement was 4.5 x 4 mm. No new nodules are seen. Stability over a two -year timeframe should be documented radiographically. No pleural effusion. No CT evidence of inters titial lung disease. MEDIASTINUM/BERNICE: Thoracic aorta is of normal caliber with limited evaluation given lack of contrast . The heart is not enlarged. No evidence for mediastinal mass. No lymph nodes greater than 1cm. UPPER ABDOMEN: No significant abnormality is seen. OTHER: No significant other abnormality. IMPRESSION: 1. Stable left lower lobe subpleural nodule. Stability over a two-year timeframe should be documente d radiographically.
== END | disposition home or self-care (01) ==
LOC: RADCTMAIN 11:07
PROVIDERS: ATTEND Family Medicine
DX: R91.1 Solitary pulmonary nodule (principal)
CPT/HCPCS: 71250

== ENCOUNTER → 2021-04-07 | Outpatient (CLI) | payer MEDICARE ==
[2021-04-07 10:59] VITALS: BP 120/80; PULSE 83; RESP 18; TEMP 98.4
--- NOTE | 2021-04-07 11:45 | P.HPOB ---
History of Present Illness H&P Date: 04/07/21 Chief Complaint: The patient is here for her routine gynecologic exam and ma mmogram. This is a 75-year-old with an LMP of 1997. The patient is without gynecologic complaints. Review of Systems She has lost about 5 pound. over the past year. She denies respiratory, cardiac and G.I. problems. She denies maltreatment. She fell once this past year without significant injury. : she denies any significant problems with urinary leakage. Past Medical History Past Medical History: Asthma, CVA/TIA, GERD/Reflux, Hyperlipidemia, Osteoarthritis (OA), Skin Disorder Additional Past Medical History / Comment(s): TIA in the past. PALPITATIONS,VARICOSE VEINS, UTI'S,INTERMITTENT DERMATITIS KATHERINE FINGERS. Seasonal allergies. 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 History of Any Multi-Drug Resistant Organisms: None Reported Past Surgical History: Section, Joint Replacement, Orthopedic Surgery Additional Past Surgical History / Comment(s): Bilateral carpal tunnel surgery. LT CATARACT, PERIANAL LESION REMOVED, TOTAL LEFT KNEE, repair of hammertoe the right foot. Oral surgery. Colonoscopy 2010(2nd). Past Anesthesia/Blood Transfusion Reactions: No Reported Reaction Additional Past Anesthesia/Blood Transfusion Reaction / Comment(s): STATED "NOT SURE IF EVER HAS HAD GENERAL ANESTHESIA" Past Psychological History: Anxiety Smoking Status: Former smoker Past Alcohol Use History: Occasional (2 per week) Additional Past Alcohol Use History / Comment(s): STARTED SMOKING IN 1963 STOPPED IN 1978 Past Drug Use History: None Reported Additional History: She has been since 1970 and is not sexually active. She is retired. She typically goes to [place] in the winter. - Past Family History Father Family Medical History: Cancer Additional Family Medical History / Comment(s): LUNG AND LIVER CA. Paternal aunt had breast cancer Mother Family Medical History: Dementia Brother(s) Family Medical History: No Reported History Son(s) Family Medical History: No Reported History Medications and Allergies Home Medications Medication Instructions Recorded Confirmed Type Cetirizine HCl [Zyrtec] 10 mg PO DAILY 07/23/14 04/07/21 History Fluticasone Propionate 1 spray EA NOSTRIL DAILY 07/23/14 04/07/21 History Simvastatin 40 mg PO HS 07/23/14 04/07/21 History Montelukast [Singulair] 10 mg PO DAILY 07/29/14 04/07/21 History Biotin 5,000 mg PO DAILY 02/26/16 04/07/21 History Calcium Carbonate/Vitamin D3 1 each PO DAILY 02/26/16 04/07/21 History [Calcium 600 + Vit D Tablet] [place]-3 Fatty Acids/Fish Oil [Fish 1 each PO DAILY 02/26/16 04/07/21 History Oil 1,000 mg Softgel] Omeprazole [PriLOSEC] 40 mg PO AC-BRKFST 07/17/18 04/07/21 History Aspirin 81 mg PO DAILY 03/11/20 04/07/21 History Inulin/Chromium Picolinate [Fiber 1 each PO DAILY 03/11/20 04/07/21 History Gummies Chew] Allergies Allergy/AdvReac Type Severity Reaction Status Date / Time adhesive Allergy SKIN Verified 04/07/21 10:37 REDNESS bacitracin Allergy SKIN Verified 04/07/21 10:37 [From Neosporin REDNESS ([id number])] bacitracin zinc Allergy SKIN Verified 04/07/21 10:37 [From Neosporin REDNESS ([id number])] neomycin sulfate Allergy SKIN Verified 04/07/21 10:37 [From Neosporin REDNESS ([id number])] polymyxin B Allergy SKIN Verified 04/07/21 10:37 [From Neosporin REDNESS ([id number])] doxycycline AdvReac Nausea Verified 04/07/21 10:37 Exam Vital Signs Temp Pulse Resp BP Pulse Ox 04/07/21 10:53 98.4 F 83 18 120/80 96 Intake and Output 04/06/21 04/07/21 04/07/21 22:59 06:59 14:59 Other: Weight 81.193 kg Height 5 feet 3 inches, weight 179 pounds, BMI 31.7. This is a well-developed well-nourished white female who is alert and oriented times 3 in no acute distress. HEENT: Within normal limits. NECK: Supple without mass or thyromegaly. CHEST AND LUNGS: Clear to auscultation. HEART: Regular rate and rhythm. BREASTS: Are without mass or discharge. AXILLARY EXAM: Negative for adenopathy. BACK: Negative for CVA tenderness. ABDOMEN: Soft, nontender, without palpable masses. PELVIC EXAM: Normal external genitalia with mild to moderate atrophy. Cervix and vagina appear normal with mild to moderate atrophy. There is no unusual discharge. There is no evidence of prolapse. The uterus is midposition, nongravid size and nontender. There are no palpable adnexal masses or tenderness. RECTAL EXAM: Rectovaginal exam is negative for mass or tenderness and is negative for occult blood. EXTREMITIES: Nontender. IMPRESSION: 1. 75-year-old menopausal female with normal gynecologic exam. 2. History of osteopenia. PLAN: 1. Pap smear was deferred since she had a normal one on 03/11/2020. I had previously recommended discontinuing Pap smears based on her age and history. She would like to continue cervical cancer screening and we will continue to do this per her request every 2-3 years. 2. Self breast awareness was discussed with the patient. 3. Screening mammogram will be done today. 4. Osteoporosis prevention was discussed. I have stressed the importance of adequate calcium, vitamin D and regular exercise. Recommended amounts of calcium and vitamin D were also discussed. We will plan on repeating bone density testing next year. 5. She has completed her Covid vaccination series. She did have a flu shot last fall. 6. I have recommended screening colonoscopy since her last one was 10 years ago. She will do this through her PCP and has already initiated this. 7. She was advised to return in one year for her annual well woman exam.
--- NOTE | 2021-04-08 09:02 | MM ---
Reason for exam: screening (asymptomatic). Last mammogram was performed 1 year and 1 month ago. History: Patient is postmenopausal. Family history of breast cancer in paternal aunt at age 54. Took hormonal contraceptives for 6 years beginning at age 19. Took estrogen for 2 years 6 months beginning at age 49. Physical Findings: A clinical breast exam by your physician is recommended on an annual basis and results should be correlated with mammographic findings. MG 3D Screening Mammo W/Cad Bilateral CC and MLO view(s) were taken. Prior study comparison: March 11, 2020, bilateral MG 3d screening mammo w/cad. October 04, 2018, bilateral MG 3d screening mammo w/cad. The breast tissue is heterogeneously dense. This may lower the sensitivity of mammography. ASSESSMENT: Negative, BI-RAD 1 RECOMMENDATION: Routine screening mammogram of both breasts in 1 year.
== END ==
LOC: WWCWWP 10:26
PROVIDERS: ATTEND Obstetrics & Gynecology
DX: Z12.31 Encounter for screening mammogram for malignant neoplasm of breast (principal); Z01.419 Encounter for gynecological examination (general) (routine) without abnormal findings; E78.5 Hyperlipidemia, unspecified; Z86.73 Personal history of transient ischemic attack (TIA), and cerebral infarction without residual deficits; J45.909 Unspecified asthma, uncomplicated; K21.9 Gastro-esophageal reflux disease without esophagitis; M19.90 Unspecified osteoarthritis, unspecified site; F41.9 Anxiety disorder, unspecified; Z87.891 Personal history of nicotine dependence; Z80.3 Family history of malignant neoplasm of breast; Z79.82 Long term (current) use of aspirin; Z91.048 Other nonmedicinal substance allergy status; Z88.1 Allergy status to other antibiotic agents; Z87.39 Personal history of other diseases of the musculoskeletal system and connective tissue
CPT/HCPCS: 77063; 77067

== ENCOUNTER 2021-07-04 14:14 | Observation (INO) | payer MEDICARE ==
[2021-07-04 16:32] LABS: Basophils % (A) 1 %; Eosinophils # (A) 0.2 k/uL (0-0.7); Eosinophils % (A) 4 %; HCT 46.4 % (34.0-46.0); HGB 15.3 gm/dL (11.4-16.0); Lymphocytes # (A) 1.7 k/uL (1.0-4.8); Lymphocytes % (A) 26 %; MCH 28.3 pg (25.0-35.0); MCHC 32.9 g/dL (31.0-37.0); Mean Platelet Volume 8.3; Monocytes # (A) 0.5 k/uL (0-1.0); Monocytes % (A) 7 %; Neutrophils # (A) 3.9 k/uL (1.3-7.7); Neutrophils % (A) 61 %; Platelet Count 185 k/uL (150-450); RBC 5.39 m/uL (3.80-5.40); WBC 6.5 k/uL (3.8-10.6)
[2021-07-04 16:40] LABS: Partial Thromboplastin Time 25.1 sec (22.0-30.0); Prothrombin Time 10.2 sec (9.0-12.0)
[2021-07-04 16:53] LABS: ALT 25 U/L (4-34); AST 31 U/L (14-36); African American GFR (CKD) >90 (>60 ml/min/1.73 sqM); Alkaline Phosphatase 121 U/L (38-126); Anion Gap 6 mmol/L; Blood Urea Nitrogen 10 mg/dL (7-17); Calcium 9.3 mg/dL (8.4-10.2); Carbon Dioxide 26 mmol/L (22-30); Chloride 108 mmol/L (98-107); Glucose 115 mg/dL (74-99); Non-African American GFR(CKD) 89 (>60 ml/min/1.73 sqM); Potassium 3.8 mmol/L (3.5-5.1); Sodium 140 mmol/L (137-145); Total Bilirubin 0.6 mg/dL (0.2-1.3); Total Protein 6.8 g/dL (6.3-8.2)
--- NOTE | 2021-07-04 17:33 | CT ---
EXAMINATION TYPE: CT brain wo con DATE OF EXAM: 07/04/2021 COMPARISON: None HISTORY: Difficulty with speech today. CT DLP: 1063.8 mGycm Automated exposure control for dose reduction was used. Images of the brain obtained without contrast. There is cerebral atrophy. There is no mass effect nor midline shift. There is no sign of intracrania l hemorrhage. There is some mild hypodensity in the periventricular white matter. Calvarium is intact . Skull base is intact. There is normal aeration of the mastoid sinuses. There is 1 cm area of hypode nsity in the cortex of the medial left frontal lobe close to the frontal horn left lateral ventricle. IMPRESSION: Mild atrophy. Mild chronic small vessel ischemia. 1 cm old lacunar infarct medial left frontal lobe. No hemorrhage.
--- NOTE | 2021-07-04 17:34 | ED ---
Neuro HPI - General Chief Complaint: Neuro Symptoms/Deficit Stated Complaint: Possible Stroke Source: EMS Mode of arrival: EMS Limitations: no limitations - History of Present Illness Is the patient presenting with stroke symptoms?: Yes Initial Comments: 75-year-old female with past medical history of TIA, hyperlipidemia who presents to the emergency department with reported expressive aphasia which lasted 5 minutes. She reports that she was on the phone around 1 PM when she had difficulty finding her words. States it lasted for about 4 minutes before spontaneously resolved. Patient denies any unilateral numbness or weakness. No headaches or visual changes. No recent head trauma. No chiropractic manipulation of the neck. Has a history of TIA in her history and takes an aspirin daily. No fevers or chills. No nausea or vomiting. Denies any chest pain or shortness of breath. No other alleviating, precipitating or modifying factors - Related Data Home Medications: Home Medications Medication Instructions Recorded Confirmed Cetirizine HCl [Zyrtec] 10 mg PO HS 07/23/14 07/04/21 Fluticasone Propionate 1 spray EA NOSTRIL HS 07/23/14 07/04/21 Simvastatin 40 mg PO HS 07/23/14 07/04/21 Montelukast [Singulair] 10 mg PO HS 07/29/14 07/04/21 Calcium Carbonate/Vitamin D3 1 each PO DAILY 02/26/16 07/04/21 [Calcium 600 + Vit D Tablet] [place]-3 Fatty Acids/Fish Oil [Fish 1 each PO DAILY 02/26/16 07/04/21 Oil 1,000 mg Softgel] Omeprazole [PriLOSEC] 40 mg PO DAILY 07/17/18 07/04/21 Aspirin 81 mg PO HS 03/11/20 07/04/21 Inulin/Chromium Picolinate [Fiber 1 each PO DAILY 03/11/20 07/04/21 Gummies Chew] Albuterol Inhaler [Ventolin Hfa 2 puff INHALATION RT-Q6H PRN 07/04/21 07/04/21 Inhaler] Biotin [Biotin Disolve] 5,000 mcg PO DAILY 07/04/21 07/04/21 Allergies/Adverse Reactions: Allergies Allergy/AdvReac Type Severity Reaction Status Date / Time adhesive Allergy SKIN Verified 07/04/21 16:37 REDNESS bacitracin Allergy SKIN Verified 07/04/21 16:37 [From Neosporin REDNESS ([id number])] bacitracin zinc Allergy SKIN Verified 07/04/21 16:37 [From Neosporin REDNESS ([id number])] neomycin sulfate Allergy SKIN Verified 07/04/21 16:37 [From Neosporin REDNESS (stc-kzu-hoesw)] polymyxin B Allergy SKIN Verified 07/04/21 16:37 [From Neosporin REDNESS ([id number]-[id number])] doxycycline AdvReac Nausea Verified 07/04/21 16:37 Review of Systems ROS Statement: Those systems with pertinent positive or pertinent negative responses have been documented in the HPI. ROS Other: All systems not noted in ROS Statement are negative. General Exam Limitations: no limitations Stroke MDM - Lab Data Result diagrams: 07/04/21 16:26 07/04/21 16:26 Lab Results 07/04/21 07/04/21 07/04/21 Range/Units 16:26 16:26 16:26 WBC 6.5 (3.8-10.6) k/uL RBC 5.39 (3.80-5.40) m/uL Hgb 15.3 (11.4-16.0) gm/dL Hct 46.4 H (34.0-46.0) % MCV 86.0 (80.0-100.0) fL MCH 28.3 (25.0-35.0) pg MCHC 32.9 (31.0-37.0) g/dL RDW 14.0 (11.5-15.5) % Plt Count 185 (150-450) k/uL MPV 8.3 Neutrophils % 61 % Lymphocytes % 26 % Monocytes % 7 % Eosinophils % 4 % Basophils % 1 % Neutrophils # 3.9 (1.3-7.7) k/uL Lymphocytes # 1.7 (1.0-4.8) k/uL Monocytes # 0.5 (0-1.0) k/uL Eosinophils # 0.2 (0-0.7) k/uL Basophils # 0.0 (0-0.2) k/uL PT 10.2 (9.0-12.0) sec INR 1.0 (<1.2) APTT 25.1 (22.0-30.0) sec Sodium 140 (137-145) mmol/L Potassium 3.8 (3.5-5.1) mmol/L Chloride 108 H (98-107) mmol/L Carbon Dioxide 26 (22-30) mmol/L Anion Gap 6 mmol/L BUN 10 (7-17) mg/dL Creatinine 0.59 (0.52-1.04) mg/dL Est GFR (CKD-EPI)AfAm >90 (>60 ml/min/1.73 sqM) Est GFR (CKD-EPI)NonAf 89 (>60 ml/min/1.73 sqM) Glucose 115 H (74-99) mg/dL Calcium 9.3 (8.4-10.2) mg/dL Total Bilirubin 0.6 (0.2-1.3) mg/dL AST 31 (14-36) U/L ALT 25 (4-34) U/L Alkaline Phosphatase 121 (38-126) U/L Troponin I (0.000-0.034) ng/mL Total Protein 6.8 (6.3-8.2) g/dL Albumin 4.0 (3.5-5.0) g/dL Urine Color Urine Appearance (Clear) Urine pH (5.0-8.0) Ur Specific [place] (1.001-1.035) Urine Protein (Negative) Urine Glucose (UA) (Negative) Urine Ketones (Negative) Urine Blood (Negative) Urine Nitrite (Negative) Urine Bilirubin (Negative) Urine Urobilinogen (<2.0) mg/dL Ur Leukocyte Esterase (Negative) 07/04/21 07/04/21 Range/Units 16:26 18:45 WBC (3.8-10.6) k/uL RBC (3.80-5.40) m/uL Hgb (11.4-16.0) gm/dL Hct (34.0-46.0) % MCV (80.0-100.0) fL MCH (25.0-35.0) pg MCHC (31.0-37.0) g/dL RDW (11.5-15.5) % Plt Count (150-450) k/uL MPV Neutrophils % % Lymphocytes % % Monocytes % % Eosinophils % % Basophils % % Neutrophils # (1.3-7.7) k/uL Lymphocytes # (1.0-4.8) k/uL Monocytes # (0-1.0) k/uL Eosinophils # (0-0.7) k/uL Basophils # (0-0.2) k/uL PT (9.0-12.0) sec INR (<1.2) APTT (22.0-30.0) sec Sodium (137-145) mmol/L Potassium (3.5-5.1) mmol/L Chloride (98-107) mmol/L Carbon Dioxide (22-30) mmol/L Anion Gap mmol/L BUN (7-17) mg/dL Creatinine (0.52-1.04) mg/dL Est GFR (CKD-EPI)AfAm (>60 ml/min/1.73 sqM) Est GFR (CKD-EPI)NonAf (>60 ml/min/1.73 sqM) Glucose (74-99) mg/dL Calcium (8.4-10.2) mg/dL Total Bilirubin (0.2-1.3) mg/dL AST (14-36) U/L ALT (4-34) U/L Alkaline Phosphatase (38-126) U/L Troponin I <0.012 (0.000-0.034) ng/mL Total Protein (6.3-8.2) g/dL Albumin (3.5-5.0) g/dL Urine Color Colorless Urine Appearance Clear (Clear) Urine pH 7.5 (5.0-8.0) Ur Specific [place] 1.040 H (1.001-1.035) Urine Protein Negative (Negative) Urine Glucose (UA) Negative (Negative) Urine Ketones Negative (Negative) Urine Blood Negative (Negative) Urine Nitrite Negative (Negative) Urine Bilirubin Negative (Negative) Urine Urobilinogen <2.0 (<2.0) mg/dL Ur Leukocyte Esterase Negative (Negative) - Medical Decision Making Upon arrival patient was placed into room 18. No history and physical exam was performed. NIH is assessed and the patient has a score of 0 at this time. Laboratory studies are conducted. Patient went for CT a of her head as well as chest x-ray. Laboratory studies were reviewed. All studies are within normal limits. CT of the patient's brain demonstrates no acute intracranial process. 1 cm old infarct medial left frontal lobe. Chest x-ray demonstrates no acute process. Results are discussed with the patient. She is reevaluated and has no new or worsening neurologic deficit. I did recommend admission. Patient's was given a full dose aspirin and her home cholesterol medication is ordered. I spoke with Dr. Kline who agreed to admit the patient. Neurology will be consulted. Patient remained in stable condition awaiting a bed on the floor 07/04/21 19:09 EKG demonstrates normal sinus rhythm with a ventricular rate of 82. NE interval 170. QRS 90. QTC of 457. No acute ST segment elevations or depressions concerning for ischemic changes Past Medical History Past Medical History: Asthma, CVA/TIA, GERD/Reflux, Hyperlipidemia, Osteoarthritis (OA), Skin Disorder Additional Past Medical History / Comment(s): TIA in the past. PALPITATIONS,VARICOSE VEINS, UTI'S,INTERMITTENT DERMATITIS KATHERINE FINGERS. Seasonal allergies. 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 History of Any Multi-Drug Resistant Organisms: None Reported Past Surgical History: Section, Joint Replacement, Orthopedic Surgery Additional Past Surgical History / Comment(s): Bilateral carpal tunnel surgery. LT CATARACT, PERIANAL LESION REMOVED, TOTAL LEFT KNEE, repair of hammertoe the right foot. Oral surgery. Colonoscopy 2011(2nd). Past Anesthesia/Blood Transfusion Reactions: No Reported Reaction Additional Past Anesthesia/Blood Transfusion Reaction / Comment(s): STATED "NOT SURE IF EVER HAS HAD GENERAL ANESTHESIA" Past Psychological History: Anxiety Smoking Status: Former smoker Past Alcohol Use History: Occasional Past Drug Use History: None Reported - Past Family History Father Family Medical History: Cancer Additional Family Medical History / Comment(s): LUNG AND LIVER CA. Paternal aunt had breast cancer Mother Family Medical History: Dementia Brother(s) Family Medical History: No Reported History Son(s) Family Medical History: No Reported History Course Vital Signs 07/04/21 14:23 Temperature 97.8 F Pulse Rate 98 Respiratory 18 Rate Blood Pressure 149/84 O2 Sat by Pulse 96 Oximetry Disposition Clinical Impression: Expressive aphasia, TIA (transient ischemic attack), History of CVA (cerebrovascular accident) Disposition: ADMITTED IP TO THIS HOSP Condition: Stable Is patient prescribed a controlled substance at d/c from ED?: No Decision to Admit Reason: Admit from EC Decision Date: 07/04/21 Decision Time: 18:54
--- NOTE | 2021-07-04 17:34 | XR ---
EXAMINATION TYPE: XR chest 2V DATE OF EXAM: 07/04/2021 COMPARISON: NONE HISTORY: Altered mental status TECHNIQUE: FINDINGS: Heart and mediastinum are normal. Lungs are clear. Diaphragm is normal. Bony thorax is inta ct. IMPRESSION: Normal chest.
--- NOTE | 2021-07-04 18:08 | CT ---
EXAMINATION TYPE: CT angio head neck DATE OF EXAM: 07/04/2021 COMPARISON: None HISTORY: Difficulty with speech today. CT DLP: 424.5 mGycm Automated exposure control for dose reduction was used. CONTRAST: Performed with IV Contrast, patient injected with 65 mL of Isovue 370. Images obtained from the aortic arch to the vertex of the brain with IV contrast. There are 3-D post processed images. There is arterial flow in both subclavian arteries. There is arterial flow in the common internal and external carotid arteries bilaterally. There is arterial flow in both vertebral arteries. There is w yolanda patency of the carotid artery bifurcations. There is no evidence of carotid or vertebral artery a neurysm or dissection. There is arterial flow in the anterior middle and posterior cerebral arteries. I see no evidence of i ntracranial aneurysm or neovascularity. There is no mass effect. There is no evidence of arterial elvira nosis. There is normal enhancement of the venous sinuses. There is arterial flow in the vertebrobasil ar artery system. IMPRESSION: Negative CT angiogram of the brain. Negative CT angiogram of the neck.
[2021-07-04] MEDS ORDERED: ASPIRIN 325 MG TAB PO STA (18:53)
[2021-07-04] MEDS ORDERED: NALOXONE 0.4 MG/ML 1 ML VIAL IV PRN (18:54)
[2021-07-04] MEDS ORDERED: ALBUTEROL HFA INHALER INHALATION PRN (18:57)
[2021-07-04 19:34] LABS: Appearance,Urine Clear (Clear); Bilirubin,Urine Negative (Negative); Blood,Urine Negative (Negative); Color,Urine Colorless; Glucose,Urine (UA) Negative (Negative); Ketones,Urine Negative (Negative); Leukocyte Esterase,Urine Negative (Negative); Nitrite,Urine Negative (Negative); PH, Urine 7.5 (5.0-8.0); Protein,Urine Negative (Negative); Urobilinogen,Urine <2.0 mg/dL (<2.0)
[2021-07-04] MEDS ORDERED: MONTELUKAST 10 MG TAB PO SCH (21:00)
[2021-07-04] MEDS ORDERED: LORATADINE 10 MG TAB PO SCH (21:00)
[2021-07-04] MEDS ORDERED: FLUTICASONE 50MCG/SPRAY NASAL 16GM EA NOSTRIL SCH (21:00)
[2021-07-04] MEDS ORDERED: ATORVASTATIN 20 MG TAB PO SCH (21:00)
--- NOTE | 2021-07-04 22:27 | HP ---
HISTORY AND PHYSICAL DATE OF SERVICE: 07/04/2021 CHIEF COMPLAINT: Possible stroke and expressive dysphasia. HISTORY OF PRESENT ILLNESS: This 75-year-old woman with a past medical history of asthma, history of TIA, GERD, hypertension, hyperlipidemia, history of TIA in the past, being followed by Dr. Marleny Davis in the outpatient setting, had an episode of expressive dysphasia while on the phone which lasted for 5 minutes; patient was unable to correct herself. The symptoms spontaneous resolved. Patient felt much better. The patient was [facility] to [facility] and admitted for further evaluation and treatment. A CT of the brain, however, showed mild atrophy and mild chronic small ischemia and 1 cm old lacunar infarct in the medial left frontal lobe. There is no history of any fever, rigor or chills at this time. PAST MEDICAL HISTORY: History of TIA, asthma, history of GERD, hyperlipidemia, history of DJD. MEDICATIONS: Home medications are humulin, albuterol, simvastatin, Prilosec, omega-3, montelukast, fluticasone, cetirizine, biotin, aspirin. ALLERGIES: ADHESIVE, BACITRACIN, DOXYCYCLINE. FAMILY HISTORY: History of lung cancer and liver cancer in the family. SOCIAL HISTORY: Previous history of smoking. Occasional alcohol intake. REVIEW OF SYSTEMS: ENT: No diminished hearing. No diminished vision. CARDIOVASCULAR SYSTEM: As mentioned earlier. RESPIRATORY SYSTEM: As mentioned earlier. GI: No nausea, vomiting, diarrhea. : No dysuria. NERVOUS SYSTEM: As mentioned earlier. ALLERGY/IMMUNOLOGY: No asthma or hay fever. MUSCULOSKELETAL: As mentioned earlier. HEMATOLOGY/ONCOLOGY: No history of anemia. ENDOCRINE: No history of diabetes or hypothyroidism. CONSTITUTIONAL: As mentioned earlier. DERMATOLOGY: Negative. RHEUMATOLOGY: Negative. PSYCHIATRY: As mentioned earlier. PHYSICAL EXAMINATION: Patient alert and oriented x3. The pulse is 98, blood pressure 149/84, respiration 18, temperature 97.8, pulse ox 96% on room air. HEENT: Conjunctivae normal. NECK: No jugular venous distention. CARDIOVASCULAR: S1, S2 muffled. RESPIRATION: Breath sounds diminished at the bases. No rhonchi. No crackles. ABDOMEN: Soft, nontender. No mass palpable. LEGS: No edema. No swelling. NERVOUS SYSTEM: Higher functions as mentioned earlier. Moves all 4 limbs. No focal motor or sensory deficit. LYMPHATICS: No lymph node palpable in neck, axillae or groin. SKIN: No ulcer, rash, bleeding. JOINTS: No active deforming arthropathy. LAB STUDIES: WBC 6.5, hemoglobin 15.6. Sodium 140, potassium 3.8. ASSESSMENT: 1. Expressive dysphagia, possible acute transient ischemic attack. Rule out acute stroke. 2. History of previous transient ischemic attack. 3. Old lacunar infarct measuring 1 cm in the medial left frontal lobe on the CT scan. 4. History of asthma. 5. History of cerebrovascular accident, transient ischemic attack. 6. Gastroesophageal reflux disease. 7. Hyperlipidemia. 8. Degenerative joint disease. 9. History of transient ischemic attack. 10.History of palpitations. 11.History of urinary tract infection. 12.History of section. 13.History of degenerative joint disease. 14.History of bilateral carpal tunnel surgery. 15.History of anxiety. 16.History of nicotine dependence. 17.FULL CODE. RECOMMENDATIONS AND DISCUSSION: In this 75-year-old woman who presented with multiple complex medical issues, we will monitor the patient closely for any acute stroke, neuro checks, neurology consultation, neurovascular workup, telemetry. We will monitor cardiac also. Home medication will be continued once they are confirmed. Prognosis is guarded because of multiple complex medical issues. Further recommendations to follow. A copy of this dictation is being forwarded to Dr. Marleny Davis, who is the primary physician. GABBIE / RADHA: [id number] / MTDD
[2021-07-04] MEDS: HEPARIN SODIUM,PORCINE/PF 5,000 UNIT/0.5 ML SYRINGE SQ SCH (22:36)
[2021-07-05 07:29] LABS: African American GFR (CKD) >90 (>60 ml/min/1.73 sqM); Anion Gap 7 mmol/L; Blood Urea Nitrogen 10 mg/dL (7-17); Calcium 9.4 mg/dL (8.4-10.2); Carbon Dioxide 23 mmol/L (22-30); Chloride 111 mmol/L (98-107); Glucose 112 mg/dL (74-99); Non-African American GFR(CKD) >90 (>60 ml/min/1.73 sqM); Sodium 141 mmol/L (137-145)
[2021-07-05] MEDS ORDERED: PANTOPRAZOLE 40 MG TABLET PO SCH (07:30)
[2021-07-05 07:40] VITALS: BP 154/95; TEMP 97.6
[2021-07-05] MEDS: HEPARIN SODIUM,PORCINE/PF 5,000 UNIT/0.5 ML SYRINGE SQ SCH (07:48)
[2021-07-05] MEDS ORDERED: CALCIUM CARBONATE 500 MG CHEWABLE PO SCH (09:00)
[2021-07-05] MEDS ORDERED: NON FORMULARY DRUG (Omega-3 Fatty Acids/Fish Oil [Fish Oil 1,000 Mg Softgel] 1 EACH Capsul PO SCH (09:00)
[2021-07-05] MEDS ORDERED: NON FORMULARY DRUG (Biotin [Biotin Disolve] 5,000 MCG Tablet) PO SCH (09:00)
[2021-07-05] MEDS ORDERED: CHOLECALCIFEROL 10 MCG (400 IU) TABLET PO SCH (09:00)
[2021-07-05] MEDS ORDERED: NON FORMULARY DRUG (Inulin/Chromium Picolinate [Fiber Gummies Chew] 1 EACH Tab.Chew) PO SCH (09:00)
[2021-07-05 09:30] LABS: Basophils # (A) 0.05 X 10*3/uL (0.00-0.10); Basophils % (A) 0.8 %; Eosinophils # (A) 0.26 X 10*3/uL (0.04-0.35); Eosinophils % (A) 4.4 %; HCT 46.1 % (37.2-46.3); HGB 14.8 g/dL (12.0-15.0); Lymphocytes % (A) 33.6 %; MCHC 32.1 g/dL (32.0-37.0); MCV 84.1 fL (80.0-97.0); Mean Platelet Volume 11.1 fL (9.5-12.2); Monocytes % (A) 10.1 %; Neutrophils # (A) 3.02 X 10*3/uL (1.80-7.70); Neutrophils % (A) 50.8 %; Platelet Count 187 X 10*3/uL (140-440); RBC 5.48 X 10*6/uL (4.10-5.20); RDW 14.8 % (11.5-14.5); WBC 5.95 X 10*3/uL (4.50-10.00)
[2021-07-05 13:59] LABS: Chol/HDL Ratio 4.07 Ratio
--- NOTE | 2021-07-05 13:59 | DS ---
DISCHARGE SUMMARY DATE OF SERVICE: 07/05/2021 FINAL DIAGNOSES: 1. Expressive dysphagia, possible acute transient ischemic attack involving the left hemisphere. 2. History of previous transient ischemic attacks. 3. Old lacunar infarct measuring 1 cm in the medial left frontal lobe on CT scan, history of asthma. 4. History of cerebrovascular accident, transient ischemic attack. 5. Gastroesophageal reflux disease. 6. Hyperlipidemia. 7. History of degenerative joint disease. 8. History of transient ischemic attack. 9. History of palpitations. 10.History urinary tract infection. 11.History of section. 12.History of degenerative joint disease. 13.History of bilateral carpal tunnel surgery. 14.History of anxiety. 15.History nicotine dependence. 16.FULL CODE. DISCHARGE DISPOSITION: The patient will be discharged in stable condition with guarded prognosis. Discharge cleared by Neurology. HISTORY OF PRESENT ILLNESS: This 75-year-old woman with a past medical history of multiple medical problems being followed by Dr. Marleny Davis in the outpatient setting admitted with expressive aphasia and dysphagia lasting 45 minutes. Patient was evaluated closely. CT scan showed findings as above. Medically treated. Neurology evaluating the patient. Patient will be discharged in stable condition with guarded prognosis if okay with Neurology. On exam, vitals signs stable. Cardiovascular S1, S2. Abdomen soft. Nervous system: No focal deficits. DISCHARGE ADVICE AND MEDICATIONS: 1. Diet is cardiac diet. 2. Activity limited until followup. 3. Follow up with Dr. Davis in 1-2 days. 4. Follow up with Dr. Montgomery in 1 week. DISCHARGE MEDICATIONS: 1. Aspirin 81 mg q.h.s. 2. Biotin 5000 mg p.o. daily. 3. Calcium carbonate 1 p.o. daily. 4. FiberCon daily. 5. [place]-3 fatty acids daily. 6. Fluticasone 1 spray daily. 7. Prilosec 40 mg daily. 8. Singulair 10 mg daily. 9. Albuterol p.r.n. 11.Lipitor 20 mg q.h.s. MMODL / IJN: [id number] / MTDD
[2021-07-05 17:27] VITALS: PULSE 78; RESP 20
--- NOTE | 2021-07-05 17:50 | P.CNNES ---
History of Present Illness Consult date: 07/05/21 Reason for Consult: expressive aphasia History of Present Illness: The patient is a very pleasant 75-year-old female who [facility] July [facility], [facility], via telemedicine. The patient reports that she was speaking on the phone with a friend when she had the sudden onset of inability to get her words out. She says when they did come out they were incorrect words. She says this lasted for several minutes. The patient denies other associated symptoms. There was no headache, visual changes, weakness or numbness in her extremities. There is no facial droop. The patient was aware that her words are not coming out correctly. He knew what she wanted to say but was unable to get the right words out. The patient elected to come into the hospital. Patient reports having had a TIA approximately 7 years ago. The patient reports occasional palpitations. These occur presently 2-3 times per month. She denies chest pain and shortness of breath. CT scan performed in the emergency department reveals an old left frontal lacunar infarct. There is no evidence of acute hemorrhage or infarct. The patient is anxious for discharge. She would like to follow up with remaining tests, as an outpatient. Review of Systems Cardiovascular: Reports palpitations (2-3 times per month, reported negative Holter monitor in the past) Past Medical History Past Medical History: Asthma, CVA/TIA, GERD/Reflux, Hyperlipidemia, Osteoarthritis (OA), Skin Disorder Additional Past Medical History / Comment(s): TIA in the past. PALPITATIONS,VARICOSE VEINS, UTI'S,INTERMITTENT DERMATITIS KATHERINE FINGERS. Seasonal allergies. 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 History of Any Multi-Drug Resistant Organisms: None Reported Past Surgical History: Section, Joint Replacement, Orthopedic Surgery Additional Past Surgical History / Comment(s): Bilateral carpal tunnel surgery. LT CATARACT, PERIANAL LESION REMOVED, TOTAL LEFT KNEE, repair of hammertoe the right foot. Oral surgery. Colonoscopy 2010(2nd). Past Anesthesia/Blood Transfusion Reactions: No Reported Reaction Additional Past Anesthesia/Blood Transfusion Reaction / Comment(s): STATED "NOT SURE IF EVER HAS HAD GENERAL ANESTHESIA" Past Psychological History: Anxiety Smoking Status: Former smoker Past Alcohol Use History: Occasional Additional Past Alcohol Use History / Comment(s): STARTED SMOKING IN 1963 STOPPED IN 1978 Past Drug Use History: None Reported - Past Family History Father Family Medical History: Cancer Additional Family Medical History / Comment(s): LUNG AND LIVER CA. Paternal au nt had breast cancer Mother Family Medical History: Dementia Brother(s) Family Medical History: No Reported History Son(s) Family Medical History: No Reported History Medications and Allergies Home Medications Medication Instructions Recorded Confirmed Type Cetirizine HCl [Zyrtec] 10 mg PO HS 07/23/14 07/04/21 History Fluticasone Propionate 1 spray EA NOSTRIL HS 07/23/14 07/04/21 History Montelukast [Singulair] 10 mg PO HS 07/29/14 07/04/21 History Calcium Carbonate/Vitamin D3 1 each PO DAILY 02/26/16 07/04/21 History [Calcium 600-Vit D3 400 Tablet] [place]-3 Fatty Acids/Fish Oil [Fish 1 each PO DAILY 02/26/16 07/04/21 History Oil 1,000 mg Softgel] Omeprazole [PriLOSEC] 40 mg PO DAILY 07/17/18 07/04/21 History Aspirin 81 mg PO HS 03/11/20 07/04/21 History Inulin/Chromium Picolinate [Fiber 1 each PO DAILY 03/11/20 07/04/21 History Gummies Chew] Albuterol Inhaler [Ventolin Hfa 2 puff INHALATION RT-Q6H PRN 07/04/21 07/04/21 History Inhaler] Biotin [Biotin Disolve] 5,000 mcg PO DAILY 07/04/21 07/04/21 History Atorvastatin [Lipitor] 20 mg PO HS #30 tab 07/05/21 Rx Allergies Allergy/AdvReac Type Severity Reaction Status Date / Time adhesive Allergy SKIN Verified 07/04/21 16:37 REDNESS bacitracin Allergy SKIN Verified 07/04/21 16:37 [From Neosporin REDNESS ([id number])] bacitracin zinc Allergy SKIN Verified 07/04/21 16:37 [From Neosporin REDNESS ([id number])] neomycin sulfate Allergy SKIN Verified 07/04/21 16:37 [From Neosporin REDNESS ([id number])] polymyxin B Allergy SKIN Verified 07/04/21 16:37 [From Neosporin REDNESS ([id number])] doxycycline AdvReac Nausea Verified 07/04/21 16:37 Physical Examination - Vital Signs Vital Signs: Vital Signs Temp Pulse Pulse Resp BP BP Pulse Ox 07/05/21 07:35 97.6 F 82 18 154/95 100 07/05/21 01:42 78 18 149/81 99 07/04/21 14:23 97.8 F 98 18 149/84 96 Intake and Output 07/04/21 07/05/21 07/05/21 22:59 06:59 14:59 Other: Voiding Method Toilet Weight 79.379 kg Gen.: The patient is seated on the gurney in the emergency department. She is in no acute distress. HEENT: Head is atraumatic, normocephalic. Fundus not visualized. There is no scleral icterus. Mucous membranes are moist. Neck: Supple, without carotid bruits Heart: Regular rate and rhythm Lungs: Clear to auscultation Extremities: Without edema Neurological examination Mental status: The patient is awake, alert and oriented 3. Her speech is clear. There is no dysarthria or aphasia. The patient is able to accurately name objects. She is able to repeat phrases. There is no right left confusion. Patient is able to accurately follow two-step commands. Cranial nerves: Pupils are equal 3 mm and reactive. Visual marques are full to confrontation. Extraocular movements are intact. There is no nystagmus. Facial sensation is intact. There is no facial asymmetry. Hearing is grossly intact. Uvula and palate are midline. Shoulder shrug is symmetric. Tongue protrudes midline. Motor: Strength is 5/5 throughout Sensation: Intact to light touch, throughout. There is no extinction with double simultaneous stimulation. Coordination: Finger to nose and rapid alternating movements are intact. Deep tendon reflexes: 2+/4+ in the upper extremities. Patellar reflexes are difficult to assess secondary to previous knee replacements Results - Laboratory Findings CBC and BMP: 07/05/21 06:43 07/05/21 06:43 Abnormal Lab Findings: Abnormal Labs 07/04/21 07/04/21 07/04/21 16:26 16:26 18:45 RBC Hct 46.4 H RDW Chloride 108 H Glucose 115 H Ur Specific [place] 1.040 H 07/05/21 07/05/21 06:43 06:43 RBC 5.48 H Hct RDW 14.8 H Chloride 111 H Glucose 112 H Ur Specific [place] Assessment and Plan Assessment: 1. TIA-involving the left middle cerebral artery territory 2. History of TIA 3. History of left frontal lobe lacunar infarct, per CT scan 4. History of hyperlipidemia Plan: 1. The patient is neurologically stable for discharge 2. MRI of brain without gadolinium, as outpatient, diagnosis-TIA 3. 2-D echocardiogram, with agitated saline-recurrent TIA, history of stroke, rule out PFO and/or shunt 4. Patient is advised to increase her Lipitor to 40 mg daily 5. The patient will start taking Plavix 75 mg, in place of her aspirin 81 mg 6. Heart healthy-Mediterranean diet is recommended 7. Exercise-brisk walking, 3-4 times per week 8. The patient is advised to call her family doctor tomorrow for follow-up 9. Consider Holter monitor or loop recorder, as the patient reports episodes, 2-3 times per month, of palpitations Time with Patient: Greater than 30 (spent 35 minutes with patient via telemedicine)
== END 2021-07-05 17:27 | disposition home or self-care (01) ==
LOC: EC 14:14 → 6NMEDSUR 18:54
PROVIDERS: ADMIT Hospitalist; ATTEND Hospitalist
DX: R13.10 Dysphagia, unspecified (principal); R47.02 Dysphasia; K21.9 Gastro-esophageal reflux disease without esophagitis; E78.5 Hyperlipidemia, unspecified; Z20.822 Contact with and (suspected) exposure to COVID-19; Z86.73 Personal history of transient ischemic attack (TIA), and cerebral infarction without residual deficits; I10 Essential (primary) hypertension; M19.90 Unspecified osteoarthritis, unspecified site; M85.80 Other specified disorders of bone density and structure, unspecified site; J45.909 Unspecified asthma, uncomplicated; J30.2 Other seasonal allergic rhinitis; F41.9 Anxiety disorder, unspecified; R00.2 Palpitations; G56.03 Carpal tunnel syndrome, bilateral upper limbs; L30.9 Dermatitis, unspecified; I83.90 Asymptomatic varicose veins of unspecified lower extremity; M20.41 Other hammer toe(s) (acquired), right foot; M20.42 Other hammer toe(s) (acquired), left foot; Z79.82 Long term (current) use of aspirin; Z79.899 Other long term (current) drug therapy; Z88.1 Allergy status to other antibiotic agents; Z98.42 Cataract extraction status, left eye; Z91.048 Other nonmedicinal substance allergy status; Z96.652 Presence of left artificial knee joint; Z87.891 Personal history of nicotine dependence; Z80.3 Family history of malignant neoplasm of breast; Z96.1 Presence of intraocular lens; Z87.440 Personal history of urinary (tract) infections; Z80.0 Family history of malignant neoplasm of digestive organs; Z82.0 Family history of epilepsy and other diseases of the nervous system
CPT/HCPCS: 99285; 96372 ×2; 36415; 93005; 80061; 80053; 80048; 84484; 85025 ×2; 85610; 85730; 81003; 87635; 71046; 70496; 70450; 70498; G0378 ×2; Q9967; J1644 ×2

== ENCOUNTER → 2022-05-25 | Outpatient (CLI) | payer MEDICARE ==
[2022-05-25 09:21] VITALS: BP 148/78; PULSE 80; RESP 17; TEMP 98.3
--- NOTE | 2022-05-25 10:30 | P.HPOB ---
History of Present Illness H&P Date: 05/25/22 Chief Complaint: The patient is here for her routine gynecologic exam and ma mmogram. This is a 76-year-old with an LMP of 1997. The patient states she has noticed a growth on her labia which has been increasing in size. She had something similar removed in the past which was benign, but was thought to probably have been caused by a virus. She is otherwise without gynecologic complaints and denies any postmenopausal bleeding. She has noticed occasional left breast discomfort. Review of Systems The patient has lost 6 pounds over the last year. She denies respiratory, cardiac, or G.I. problems. Past Medical History Past Medical History: Asthma, CVA/TIA, GERD/Reflux, Hyperlipidemia, Osteoarthritis (OA), Skin Disorder Additional Past Medical History / Comment(s): TIA in the past. Small CVA June 2021. PALPITATIONS,VARICOSE VEINS, UTI'S,INTERMITTENT DERMATITIS KATHERINE FINGERS. Seasonal allergies. 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 History of Any Multi-Drug Resistant Organisms: None Reported Past Surgical History: Section, Joint Replacement, Orthopedic Surgery Additional Past Surgical History / Comment(s): Bilateral carpal tunnel surgery. LT CATARACT, PERIANAL LESION REMOVED, TOTAL LEFT KNEE, repair of hammertoe the right foot. Oral surgery. Colonoscopy 2021. Past Anesthesia/Blood Transfusion Reactions: No Reported Reaction Additional Past Anesthesia/Blood Transfusion Reaction / Comment(s): STATED "NOT SURE IF EVER HAS HAD GENERAL ANESTHESIA" Past Psychological History: Anxiety Smoking Status: Former smoker Past Alcohol Use History: Occasional (0-6 per week) Additional Past Alcohol Use History / Comment(s): STARTED SMOKING IN 1963 STOPPED IN 1978 Past Drug Use History: None Reported Additional History: She has been since 1970 and is not sexually active. She states she has not been sexually active for several years. She is retired. - Past Family History Father Family Medical History: Cancer Additional Family Medical History / Comment(s): LUNG AND LIVER CA. Paternal aunt had breast cancer Mother Family Medical History: Dementia Brother(s) Family Medical History: No Reported History Son(s) Family Medical History: No Reported History Medications and Allergies Home Medications Medication Instructions Recorded Confirmed Type Cetirizine HCl [Zyrtec] 10 mg PO HS 07/23/14 05/25/22 History Fluticasone Propionate 1 spray EA NOSTRIL HS 07/23/14 05/25/22 History Montelukast [Singulair] 10 mg PO HS 07/29/14 05/25/22 History Calcium Carbonate/Vitamin D3 1 each PO DAILY 02/26/16 05/25/22 History [Calcium 600-Vit D3 400 Tablet] Omeprazole [PriLOSEC] 40 mg PO DAILY 07/17/18 05/25/22 History Aspirin 81 mg PO HS 03/11/20 05/25/22 History Inulin/Chromium Picolinate [Fiber 1 each PO DAILY 03/11/20 05/25/22 History Gummies Chew] Albuterol Inhaler [Ventolin Hfa 2 puff INHALATION RT-Q6H PRN 07/04/21 05/25/22 History Inhaler] Biotin [Biotin Disolve] 5,000 mcg PO DAILY 07/04/21 05/25/22 History Atorvastatin [Lipitor] 20 mg PO HS #30 tab 07/05/21 05/25/22 Rx Cephalexin [Keflex] 500 mg PO DIRECTED PRN 05/25/22 05/25/22 History Allergies Allergy/AdvReac Type Severity Reaction Status Date / Time adhesive Allergy SKIN Verified 05/25/22 09:13 REDNESS bacitracin Allergy SKIN Verified 05/25/22 09:13 [From Neosporin REDNESS ([id number])] bacitracin zinc Allergy SKIN Verified 05/25/22 09:13 [From Neosporin REDNESS ([id number])] neomycin sulfate Allergy SKIN Verified 05/25/22 09:13 [From Neosporin REDNESS ([id number])] polymyxin B Allergy SKIN Verified 05/25/22 09:13 [From Neosporin REDNESS ([id number])] doxycycline AdvReac Nausea Verified 05/25/22 09:13 Exam Vital Signs Temp Pulse Resp BP Pulse Ox 05/25/22 09:19 98.3 F 80 17 148/78 97 Intake and Output 05/24/22 05/25/22 05/25/22 22:59 06:59 14:59 Other: Weight 78.471 kg Height 5 feet 3 inches, weight 173 pounds, BMI 30.6. This is a well-developed well-nourished white female who is alert and oriented times 3 in no acute distress. HEENT: Within normal limits. NECK: Supple without mass or thyromegaly. CHEST AND LUNGS: Clear to auscultation. HEART: Regular rate and rhythm. BREASTS: Are without mass or discharge. There is minimal left breast tenderness. AXILLARY EXAM: Negative for adenopathy. BACK: Negative for CVA tenderness. ABDOMEN: Soft, nontender, without palpable masses. PELVIC EXAM: External genitalia reveals mild to moderate atrophy. There is a condylomatous growth measuring approximately 2.5 x 2.0 cm at the posterior aspect of the right labia. This growth is nonerythematous and nontender. There is a smaller similar growth measuring approximately 1 x 1.5 cm in the left perianal region. The patient states she has noticed these types of changes during the past 2 years and they have gradually gotten larger. Cervix and vagina appear normal with mild to moderate atrophy. There is no unusual discharge. There is no evidence of prolapse. The uterus is midposition, nongravid size and nontender. There are no palpable adnexal masses or tenderness. RECTAL EXAM: Rectovaginal exam is negative for mass or tenderness and is negative for occult blood. EXTREMITIES: Nontender. IMPRESSION: 1. 76-year-old menopausal female with condylomatous changes at the posterior aspect of the right labia and left perianal areas. 2. History of osteopenia. PLAN: 1. Pap smear cotest was performed. The patient has requested to continue Pap smear screening. With a the condylomatous growth noticed on the external genitalia, we will proceed with Pap smear cotest 2. Self breast awareness was discussed with the patient. We have also discussed symptoms associated with inflammatory breast cancer. 3. Screening mammogram was done today. 4. Because of the abnormal vulvar and perianal growths and relatively fast increase in size per the patient, I recommended removal. She will be referred to Dr. Kaiesr for repeat evaluation and possible removal. 5. Osteoporosis prevention was discussed. I have stressed the importance of adequate calcium, vitamin D and regular exercise. Recommended amounts of calcium and vitamin D were also discussed. Bone density testing will be done today. 6. She was advised to return in one year for her annual well woman exam and as needed.
--- NOTE | 2022-05-25 11:29 | BD ---
EXAMINATION TYPE: Axial Bone Density DATE OF EXAM: 05/25/2022 COMPARISON: 09.24.2016 CLINICAL HISTORY: 76 years year old Female. ICD-10 CODE: Z78.0 Height: 62 Weight: 172 FRAX RISK QUESTIONS: RISK FACTORS HISTORY OF: Spine Fracture: LUMBAR FXs AT AGE 31 History of Wrist Fracture: RT ARM FX A YOUNG WOMAN Postmenopausal woman: YES, AGE 51 Take estrogen and/or progesterone medications: FOR ABOUT 2 YRS ONLY IN THE PAST Hyperparathyroidism: NO Adrenal Insufficiency: NO MEDICATIONS: Prednisone or other steroids: INHALERS FOR LUNGS, ON AND OFF Additional Medications: BP MEDS, REFLUX MEDS, STATIN FOR CHOLESTEROL, VIT D, AND CALCIUM Additional History: HYPERTENSION, CHOLESTEROL, REFLUX, MILD ASTHMA, OSTEOARTHRITIS EXAM MEASUREMENTS: Bone mineral densitometry was performed using the [employer] System. SPINE NOT SCANNED....HX OF LUMBAR COMPRESSION FX AT AGE 31 Bone mineral density about the R hip (g/cm2): 0.803 Bone mineral density about the L hip (g/cm2): 0.760 T Score values are as follows: -----R Neck: -2.5 -----L Neck: -2.7 -----R Total: -1.6 -----L Total: -2.0 Bone mineral density has: Increased 1.4% since study of: 09.24.2017 Bone mineral density about the L Wrist (g/cm2): 0.486 T Score values are as follows: -----Dist. R+U: -3.0 -----Prox. R+U: -1.9 -----Radius total: -2.8 Bone mineral density FIRST SCAN FOR PTS FOREARM FRAX%s: The graph provided illustrates a 36.5% chance for a major osteoporotic fx and a 25.9% chance for the hips probability for fx in 10 years time. IMPRESSION: Osteopenia (T Score between -2.5 and -1). There is slightly increased risk of fracture and the patient may be considered for treatment. Re-Screen 2-5 years. NOTE: T-SCORE=SD OF THE YOUNG ADULT MEAN.
--- NOTE | 2022-05-26 07:46 | MM ---
Reason for Exam: Screening (asymptomatic). Last mammogram was performed 1 year(s) and 1 month(s) ago. Patient History: Menarche at age 11. First Full-Term at age 23. Postmenopausal. Patient has history of breast feeding. Estrogen for 2 years, 6 months, from age 49 until age 52. Hormonal Contraceptives for 6 years from age 19 until age 25. Paternal aunt had breast cancer, age 54. Risk Values: [place] 5 year model risk: 1.6%. NCI Lifetime model risk: 3.0%. Prior Study Comparison: 10/04/2018 Bilateral Screening Mammogram, [facility]. 03/11/2020 Bilateral Screening Mammogram, [facility]. 04/07/2021 Bilateral Screening Mammogram, [facility]. Tissue Density: The breast tissue is heterogeneously dense. This may lower the sensitivity of mammography. Findings: Analyzed By CAD. There is no suspicious group of microcalcifications or new suspicious mass in either breast. Overall Assessment: Benign, BI-RAD 2 Management: Screening Mammogram of both breasts in 1 year. A clinical breast exam by your physician is recommended on an annual basis and results should be correlated with mammographic findings. Electronically signed and approved by: Shamar Rivera M.D. Radiologis
== END | disposition home or self-care (01) ==
LOC: RADMAMWWP 08:52
PROVIDERS: ATTEND Obstetrics & Gynecology
DX: Z12.31 Encounter for screening mammogram for malignant neoplasm of breast (principal); M81.0 Age-related osteoporosis without current pathological fracture; Z78.0 Asymptomatic menopausal state; Z80.3 Family history of malignant neoplasm of breast
CPT/HCPCS: 77063; 77067; 77080

== ENCOUNTER → 2022-07-23 | Outpatient (CLI) | payer MEDICARE ==
[2022-07-23 18:02] LABS: Basophils # (A) 0.06 X 10*3/uL (0.00-0.10); Eosinophils # (A) 0.21 X 10*3/uL (0.04-0.35); Eosinophils % (A) 3.6 %; HCT 44.8 % (37.2-46.3); HGB 14.3 g/dL (12.0-15.0); Immature Grans, Automated 0.2 %; Lymphocytes # (A) 1.63 X 10*3/uL (0.90-5.00); Lymphocytes % (A) 27.9 %; MCH 27.2 pg (27.0-32.0); MCHC 31.9 g/dL (32.0-37.0); MCV 85.2 fL (80.0-97.0); Mean Platelet Volume 11.9 fL (9.5-12.2); Monocytes # (A) 0.57 X 10*3/uL (0.20-1.00); Monocytes % (A) 9.8 %; NRBC Per 100 WBC 0 /100 WBCS (0.0-0.0); Neutrophils # (A) 3.36 X 10*3/uL (1.80-7.70); Neutrophils % (A) 57.5 %; Platelet Count 201 X 10*3/uL (140-440); RBC 5.26 X 10*6/uL (4.10-5.20); RDW 14.5 % (11.5-14.5); WBC 5.84 X 10*3/uL (4.50-10.00)
== END | disposition home or self-care (01) ==
LOC: LABPAT 09:51
PROVIDERS: ATTEND Obstetrics & Gynecology
DX: Z01.812 Encounter for preprocedural laboratory examination (principal); A63.0 Anogenital (venereal) warts
CPT/HCPCS: 85025; 93005

== ENCOUNTER 2022-08-03 08:22 | Day surgery (SDC) | payer MEDICARE ==
[2022-07-29 09:21] VITALS: BMI 30.1
[~2022-08-03 08:22] MED LIST changes: -ACETAMINOPHEN TAB 500 MG TAB PO ONE; -DEXAMETHASONE SOD PHOSPHATE 10 MG/ML 1 ML VIAL IV ONE; -LIDOCAINE 1% 20 ML VIAL (10MG/ML) FOR IV START INTRADERMA PRN; -MELOXICAM 7.5 MG TAB PO ONE; -MIDAZOLAM 2 MG/2 ML VIAL IV PRN; -ONDANSETRON 4 MG/2 ML VIAL IVP ONE; +Pre Op ABX Message 1 EACH MISC MISCELLANE ONE; -TRANEXAMIC ACID 1,000 MG in SODIUM CHLORIDE 0.9% 50 ML IVPB ONE; -ceFAZolin IN SWFI 2 GM/20 ML SYRINGE IVP ONE; -fentaNYL (PF) 50 MCG/ML 2 ML AMP IV PRN
[2022-08-03 08:44] VITALS: RESP 16
[2022-08-03] MEDS ORDERED: LACTATED RINGERS 1,000 ML IV ONE (08:50)
[2022-08-03] MEDS ORDERED: ONDANSETRON 4 MG/2 ML VIAL ONE (09:06)
[2022-08-03] MEDS ORDERED: DEXAMETHASONE SOD PHOSPHATE 4 MG/ML 1 ML VIAL IVP ONE (09:12)
[2022-08-03] MEDS ORDERED: ONDANSETRON 4 MG/2 ML VIAL IVP ONE ×2 (09:12→10:42)
[2022-08-03] MEDS ORDERED: SUCCINYLCHOLINE CHLORIDE 200 MG/10 ML VIAL IV ONE (09:55)
[2022-08-03] MEDS ORDERED: fentaNYL (PF) 50 MCG/ML 2 ML AMP ONE (09:55)
[2022-08-03] MEDS ORDERED: PROPOFOL 10 MG/ML 20 ML VIAL IV ONE (09:55)
[2022-08-03] MEDS ORDERED: KETOROLAC 15 MG/ML 1 ML VIAL ONE (09:55)
[2022-08-03] MEDS ORDERED: LIDOCAINE 2% INJ 20 MG/ML (2 ML VIAL) ONE (09:55)
--- NOTE | 2022-08-03 10:39 | P.OP ---
Date of Procedure: 08/03/22 Preoperative Diagnosis: Multiple fungating perineal and perianal condylomata Postoperative Diagnosis: Same Procedure(s) Performed: CO2 laser ablation of multiple fungating perineal and perianal condylomata Anesthesia: JAROCHO Surgeon: Claudine Kaiser Estimated Blood Loss (ml): 10 IV fluids (ml): 300 Urine output (ml): 200 Pathology: other (Condylomatous lesions) Condition: stable Disposition: PACU Description of Procedure: Patient is brought to the operating suite where a general anesthetic is administered without difficulty. She's placed in the dorsal lithotomy position. The perineal body as well as perianal areas are prepped and draped in the usual sterile fashion. The bladder is drained for approximately 200 mL of clear yellow urine. The perineal body is draped with wet blue towels. All staff is properly equipped with appropriate eyewear and masks. The CO2 laser is sent to 4 W power. The appropriate timeout is performed to assure proper patient and procedural identification. The largest to a half to 3 cm condylomatous is removed first with a sharp scissor. The base is cauterized with the CO2 laser on 4 W power. 2 additional left perianal condylomata are ablated with the CO2 laser. The bases are swept with a sponge to assure proper and thorough removal. Additional right-sided perineal and perianal condylomata were ablated with the CO2 laser. A sponge is used to sweep the tissue from the underlying skin. Hemostasis is excellent. When I am certain that all condylomatous lesions had been removed, Silvadene lotion is applied to the wounds. Patient is brought back to the recovery room in stable condition with a blood pressure 98/56, pulse 65, 98% O2 saturation. Proper perineal care has been reviewed with the patient. She will follow-up with me in the office in 2 weeks. All sponge needle and enhancement counts are correct at the end of our procedure.
[2022-08-03 10:42] VITALS: TEMP 97.4
[2022-08-03] MEDS ORDERED: DEXAMETHASONE SOD PHOSPHATE 4 MG/ML 1 ML VIAL IV ONE (10:42)
[2022-08-03] MEDS ORDERED: HYDROmorphone 0.5 MG/0.5 ML SYRINGE IVP PRN (10:42)
[2022-08-03] MEDS ORDERED: LACTATED RINGERS 1,000 ML IV SCH (10:42)
[2022-08-03] MEDS ORDERED: LIDOCAINE 1% (10MG/ML) FOR IV START INTRADERMA PRN (10:42)
[2022-08-03 12:01] VITALS: BP 149/78; PULSE 71
== END 2022-08-03 12:03 | disposition home or self-care (01) ==
LOC: OR 08:22
PROVIDERS: ATTEND Obstetrics & Gynecology
DX: A63.0 Anogenital (venereal) warts (principal); I10 Essential (primary) hypertension; E78.5 Hyperlipidemia, unspecified; K21.9 Gastro-esophageal reflux disease without esophagitis; Z79.82 Long term (current) use of aspirin; Z79.51 Long term (current) use of inhaled steroids
CPT/HCPCS: 46922; 88305; J0330; J1100; J2405; J3010; J1885; J2704; J2001

== ENCOUNTER → 2023-06-07 | Outpatient (CLI) | payer MEDICARE ==
[2023-06-07 10:48] VITALS: BP 144/82; PULSE 90; RESP 17; TEMP 97.9
--- NOTE | 2023-06-07 11:51 | P.HPOB ---
History of Present Illness H&P Date: 06/07/23 Chief Complaint: The patient is here for her routine gynecologic exam and ma mmogram. This is a 77-year-old with an LMP of 1997. The patient underwent excision of a condyloma on 08/03/[address] Kaiser. She states she is no longer noticing a condyloma, but noticed something red when she examined herself with a mirror and this was in the midline when she spread the labia up apart. She has also noticed slight left breast pains that feel like twinges. This is not new for her. She is otherwise without complaints. Review of Systems The patient has gained 5 pounds over the last year. She denies respiratory, cardiac, or G.I. problems. Past Medical History Past Medical History: Asthma, CVA/TIA, GERD/Reflux, Hyperlipidemia, Osteoarthritis (OA), Skin Disorder Additional Past Medical History / Comment(s): TIA in the past. Small CVA June 2021. PALPITATIONS,VARICOSE VEINS, UTI'S,INTERMITTENT DERMATITIS KATHERINE FINGERS. Seasonal allergies. Osteoporosis(pt has declined medication). PAST DIRECTOR WORK HISTORY: She has no history of STDs. History of Any Multi-Drug Resistant Organisms: None Reported Past Surgical History: Section, Joint Replacement, Orthopedic Surgery Additional Past Surgical History / Comment(s): Bilateral carpal tunnel surgery. LT CATARACT, PERIANAL LESION REMOVED, TOTAL LEFT KNEE, repair of hammertoe the right foot. Oral surgery. Colonoscopy 2021. Past Anesthesia/Blood Transfusion Reactions: No Reported Reaction Additional Past Anesthesia/Blood Transfusion Reaction / Comment(s): STATED "NOT SURE IF EVER HAS HAD GENERAL ANESTHESIA" Past Psychological History: Anxiety Smoking Status: Former smoker Past Alcohol Use History: Occasional (2-3 per week.) Additional Past Alcohol Use History / Comment(s): STARTED SMOKING IN 1963 STOPPED IN 1978 Past Drug Use History: None Reported Additional History: She has been since 1970 and is not sexually active. She is retired. - Past Family History Father Family Medical History: Cancer Additional Family Medical History / Comment(s): LUNG AND LIVER CA. Paternal aunt had breast cancer Mother Family Medical History: Dementia Brother(s) Family Medical History: No Reported History Son(s) Family Medical History: No Reported History Medications and Allergies Home Medications Medication Instructions Recorded Confirmed Type Cetirizine HCl [Zyrtec] 10 mg PO HS 07/23/14 06/07/23 History Fluticasone Propionate 1 spray EA NOSTRIL HS 07/23/14 06/07/23 History Montelukast [Singulair] 10 mg PO HS 07/29/14 06/07/23 History Calcium Carbonate/Vitamin D3 1 each PO DAILY 02/26/16 06/07/23 History [Calcium 600-Vit D3 400 Tablet] Aspirin 81 mg PO HS 03/11/20 06/07/23 History Albuterol Inhaler [Ventolin Hfa 2 puff INHALATION RT-Q6H PRN 07/04/21 06/07/23 History Inhaler] Biotin [Biotin Disolve] 5,000 mcg PO DAILY 07/04/21 06/07/23 History Atorvastatin [Lipitor] 20 mg PO HS #30 tab 07/05/21 06/07/23 Rx Cholecalciferol [Vitamin D3 (25 50 mcg PO DAILY 07/29/22 06/07/23 History Mcg = 1000 Iu)] Losartan [Cozaar] 25 mg PO DAILY 07/29/22 06/07/23 History [place]-3/Dha/Epa/Fish Oil [Fish Oil 1 each PO DAILY 07/29/22 06/07/23 History 1,000 mg Softgel] Omeprazole [PriLOSEC] 20 mg PO AC-[id number] 07/29/22 06/07/23 History Allergies Allergy/AdvReac Type Severity Reaction Status Date / Time adhesive Allergy SKIN Verified 06/07/23 10:41 REDNESS bacitracin Allergy SKIN Verified 06/07/23 10:41 [From Neosporin REDNESS ([id number])] bacitracin zinc Allergy SKIN Verified 06/07/23 10:41 [From Neosporin REDNESS ([id number])] neomycin sulfate Allergy SKIN Verified 06/07/23 10:41 [From Neosporin REDNESS ([id number])] polymyxin B Allergy SKIN Verified 06/07/23 10:41 [From Neosporin REDNESS ([id number])] Exam Vital Signs Temp Pulse Resp BP Pulse Ox 06/07/23 10:43 97.9 F 90 17 144/82 98 Intake and Output 06/06/23 06/07/23 06/07/23 22:59 06:59 14:59 Other: Weight 80.739 kg Height 5 feet 3 inches, weight 178 pounds, BMI 31.5. This is a well-developed well-nourished white female who is alert and oriented times 3 in no acute distress. HEENT: Within normal limits. NECK: Supple without mass or thyromegaly. CHEST AND LUNGS: Clear to auscultation. HEART: Regular rate and rhythm. BREASTS: Are without mass or discharge. AXILLARY EXAM: Negative for adenopathy. BACK: Negative for CVA tenderness. ABDOMEN: Soft, nontender, without palpable masses. PELVIC EXAM: Normal external genitalia with mild to moderate atrophy. Upon spreading the labia, the urethral opening is slightly more red compared to the surrounding vaginal mucosa. This does not appear inflamed and appears to be a very small urethral caruncle which appears completely benign. Cervix and vagina appear normal with mild to moderate atrophy. There is no unusual discharge. There is no evidence of prolapse. The uterus is midposition, nongravid size and nontender. There are no palpable adnexal masses or tenderness. RECTAL EXAM: Rectovaginal exam is negative for mass or tenderness and is negative for occult blood. EXTREMITIES: Nontender. IMPRESSION: 1. 77-year-old menopausal female with very small benign-appearing urethral caruncle and otherwise unremarkable gynecologic exam. 2. History of osteoporosis and the patient continues to decline prescription medication for this. PLAN: 1. I have recommended to discontinue Pap smears based on her age and adequate screening in the past. The patient has chosen to continue cervical screening because she had condyloma removed last year. Her last cotest on 05/25/2022 was negative. We will plan on repeating the Pap smears per her request 4-5 years after her last one. 2. Self breast awareness was discussed with the patient. We have also discussed symptoms associated with inflammatory breast cancer. 3. Screening mammogram was done today. 4. Osteoporosis management was discussed. I have stressed the importance of adequate calcium, vitamin D and regular exercise. Recommended amounts of calcium and vitamin D were also discussed. I recommended to repeat the bone density test in 1 year. She was also instructed to call if she changes her mind about using medications. We have discussed various options for medical treatment for the osteoporosis. We have also discussed medications that can be given as injections or IV infusions. She still has concerns about the steps of medications. 5. She was advised to return in one year for her annual well woman exam.
--- NOTE | 2023-06-08 15:46 | MM ---
Reason for Exam: Screening (asymptomatic). Last mammogram was performed 1 year(s) and 1 month(s) ago. Patient History: Menarche at age 11. First Full-Term at age 23. Postmenopausal. Patient has history of breast feeding. Estrogen for 2 years, 6 months, from age 49 until age 52. Hormonal Contraceptives for 6 years from age 19 until age 25. Paternal aunt had breast cancer, age 54. Risk Values: Audelia 5 year model risk: 1.5%. NCI Lifetime model risk: 2.8%. Prior Study Comparison: 03/11/2020 Bilateral Screening Mammogram, LOCATED WITHIN [facility]. 04/07/2021 Bilateral Screening Mammogram, LOCATED [facility]IN [facility]. 05/25/2022 Bilateral MG 3D screening mammo w/cad, LOCATED WITHIN [facility]. Tissue Density: The breast tissue is heterogeneously dense. This may lower the sensitivity of mammography. Findings: Analyzed By CAD. Pattern appears symmetrical and stable. No significant interval change is evident. Benign calcification is within the left breast. No suspicious groups of microcalcifications, spiculated or lobular masses, architectural distortion or other secondary signs of malignancy are mammographically apparent. Overall Assessment: Benign, BI-RAD 2 Management: Screening Mammogram of both breasts in 1 year. A negative mammogram report should not preclude additional follow up of suspicious palpable abnormalities. Patient should continue monthly self breast exam. A clinical breast exam by your physician is recommended on an annual basis and results should be correlated with mammographic findings. Electronically signed and approved by: Aaron Schmid D.O. Radiologis
== END ==
LOC: WWCWWP 10:32
PROVIDERS: ATTEND Obstetrics & Gynecology
DX: Z01.419 Encounter for gynecological examination (general) (routine) without abnormal findings (principal); E78.5 Hyperlipidemia, unspecified; J45.909 Unspecified asthma, uncomplicated; K21.9 Gastro-esophageal reflux disease without esophagitis; M19.90 Unspecified osteoarthritis, unspecified site; M81.0 Age-related osteoporosis without current pathological fracture; N36.2 Urethral caruncle; Z80.3 Family history of malignant neoplasm of breast; Z86.73 Personal history of transient ischemic attack (TIA), and cerebral infarction without residual deficits; Z87.440 Personal history of urinary (tract) infections; Z78.0 Asymptomatic menopausal state; Z87.891 Personal history of nicotine dependence; Z12.31 Encounter for screening mammogram for malignant neoplasm of breast; Z91.048 Other nonmedicinal substance allergy status; Z88.8 Allergy status to other drugs, medicaments and biological substances; Z79.51 Long term (current) use of inhaled steroids
CPT/HCPCS: 77063; 77067